=== PATIENT | male | born 1955 | race Caucasian/White ===

== ENCOUNTER 2025-02-20 06:08 | Inpatient (IN) ==
--- NOTE | 2025-02-14 11:58 | Anesthesiology Consultation ---
Date of Service February 14, 2025 Assessment & Plan (1) Encounter for pre-operative examination: Chart Review Chart Review: Pending: Refer to Additional Notes / Consult section (please obtain Cardio Office visit note from 10/28/24 visit (, [facility])) and Patient NOT seen in Pre Admission Testing -PAT phone eval completed by RN on 02/14/25 with pt's significant other and back roll lathe operator Tatyana. Instructions given and verbalized understanding on all medicat ions (including to hold Trulicity x 7 days and specific instructions on both short and long acting insulin) WITH EXCEPTION of antiplatelet/anticoagulant medications. Pt's back roll lathe operator was instructed specifically to contact surgeon's office to obtain instructions on: Brilinta, ASA, and Eliquis. She verbalized understanding and states that she will call surgeon's office for instructions on Brilinta, ASA, and Eliquis. -Note: pt was originally scheduled for this procedure 02/07/25 and was cancelled upon arrival due to antiplatelet/anticoagulant issue. See above, Re: pt/caregiver advised to contact surgeon's office to go over instructions on those medications. -From prior Anesthesia Consultation: Chlorhexidine allergy Per patient- pacemaker noted to left side. Scheduled for right TCAR. Discussed with Dr. Arroyo- pacer rep NOT needed DOS Per cardiology letter 12/28/2024 = Patient is low to intermediate cardiac risk for upcoming TCAR procedure. Infectious Disease screening: Per [facility] nursing assessment on 02/14/25, No known infectious disease contacts in past 10 days or current infectious disease symptoms. No recent travel outside the country. History Surgery Operation Date: 02/20/25 09:50 Proposed Procedures p Right Side Transcarotid Artery Revascularization - Humberto Martinez MD Height/Weight Height: 5 ft 11 in Weight: 113.398 kg Allergies Allergy/AdvReac Type Severity Reaction Status Date / Time chlorhexidine Allergy Mild red, itchy Verified 02/14/25 08:41 skin doxycycline Allergy Mild red, itchy Verified 02/14/25 08:41 skin Penicillins Allergy Mild Hives Verified 02/14/25 08:41 Medications Home Medications Medication Instructions Recorded Confirmed Last Taken apixaban 5 mg tablet 5 mg PO BID 01/31/25 02/14/25 Unknown aspirin 81 mg tablet 81 mg PO DAILY 01/31/25 02/14/25 Unknown digoxin 125 mcg (0.125 mg) tablet 125 mcg PO QAM 01/31/25 02/14/25 Unknown diltiazem HCl 360 mg 360 mg PO QAM 01/31/25 02/14/25 Unknown tablet,extended release 24 hr dulaglutide 3 mg/0.5 mL 3 mg subcut Q7D 01/31/25 02/14/25 Unknown subcutaneous pen injector empagliflozin 10 mg tablet 10 mg PO QAM 01/31/25 02/14/25 Unknown fenofibrate nanocrystallized 145 145 mg PO QAM 01/31/25 02/14/25 Unknown mg tablet furosemide 80 mg tablet 80 mg PO BID 01/31/25 02/14/25 Unknown insulin glargine 100 unit/mL (3 48 unit subcut BID 01/31/25 02/14/25 Unknown mL) subcutaneous pen (Lantus Solostar U-100 Insulin) insulin lispro 100 unit/mL 25 unit subcut UD 01/31/25 02/14/25 Unknown subcutaneous pen (Humalog KwikPen (U-100) Insulin) lisinopril 2.5 mg tablet 2.5 mg PO QAM 01/31/25 02/14/25 Unknown metformin 1,000 mg tablet 500 mg PO BID 01/31/25 02/14/25 Unknown metoprolol succinate 50 mg 75 mg PO BID 01/31/25 02/14/25 Unknown tablet,extended release 24 hr potassium chloride 20 mEq 20 meq PO QAM 01/31/25 02/14/25 Unknown tablet,extended release revefenacin 175 mcg/3 mL solution 175 mcg inhalation QPM 01/31/25 02/14/25 Unknown for nebulization ([place]) rosuvastatin 40 mg tablet 40 mg PO QPM 01/31/25 02/14/25 Unknown nystatin 100,000 unit/gram topical 1 applic topical BID #60 grams 02/07/25 02/14/25 Unknown powder ticagrelor 90 mg tablet (Brilinta) 90 mg PO BID 02/07/25 02/14/25 Unknown cholecalciferol (vitamin D3) 125 50,000 unit PO WK 02/14/25 02/14/25 Unknown mcg (5,000 unit) tablet (Vitamin D3) ensifentrine 3 mg/2.5 mL 2.5 ml inhalation AMPM 02/14/25 02/14/25 Unknown suspension for nebulization (Ohtuvayre) tamsulosin 0.4 mg capsule 0.4 mg PO DAILY 02/14/25 02/14/25 Unknown Past Medical History Medical History (Updated 02/14/25 @ 13:27 by Eileen Lua PA-C) Aortic valve stenosis Moderate per 12/2023 ECHO CAD (coronary artery disease) s/p PCI to RCA 2010 and PCI to LAD 2022 Carotid artery disease CKD (chronic kidney disease) Diabetes mellitus, type 2 IDDM History of atrial fibrillation permanent Afib; s/p pacer and is on Eliquis History of COPD History of COVID-19 (2023) 2023, no residual symptoms History of depression History of hypertension History of urinary retention Hx of atrial flutter s/p ablation 2010 On Eliquis Hx of congestive heart failure EF 50-55% per 12/2023 ECHO Hx of gastroesophageal reflux (GERD) "doesn't take his medicine regularly" Hx of hypercapnia 2015, "spent 8 days intubated at [facility], CO2 levels were at 99%" per Hx of hyperlipidemia Hx of migraines Hx of myocardial infarction (06/2009) 06/2009 Hx of sleep apnea CPAP- non compliant per SO Noncompliance pt's significant other states pt. is noncompliant with medications, home oxygen and nebulizer treatments On home oxygen therapy supposed to be on 4L O2 continuously, not always compliant per significant other Pacemaker Due to SSS , [employer] 06/28/2024, new generator placed, [facility] [place], [employer] PAD (peripheral artery disease) - s/p iliac artery stent 02/2023 (unsure what side); angioplasty to opposite iliac artery Peripheral angiogram LE- 11/10/24- showed severe PAD involving the left common femoral artery, bilateral SFA (recommended vascular surgery consult for possible DRYWALL MECHANIC endarterectomy followed by PCI of the bilateral SFA) Pulmonary HTN RVSP 49mmHg 12/2023 ECHO SSS (sick sinus syndrome) per chart review, SSS/2nd or 3rd degree heart block hx; s/p PPM ([employer]) Past Surgical History Surgical History History of cardiac radiofrequency ablation (RFA) (2011) 2009, [facility] [place]-"failed" ~2011, [facility] @ [place]failed" History of permanent cardiac pacemaker placement 02/2011, [place], [employer]; f/u dr. cantrell, [facility] 06/28/2024, new generator placed, [facility] [place], [employer] > last in-person check 12/2024 Hx of colonoscopy Hx of fusion of cervical spine late , [facility], weak muscle on one side-has some ROM limitations per Hx of heart artery stent (02/2023) 06/2009, [place], [place], x2 stents w/Dr. Hernandez 03/13/2023, routine cath, [facility], x1 stent; f/u Dr. Cantrell, [facility] Hx of unilateral orchiectomy "no cancer, just kept swelling up" S/P epidural steroid injection "couple in the past for his neck" S/P insertion of iliac artery stent 02/2023, [facility], stent in one leg; couple weeks later, ballooning of artery opposite leg Social History Smoking Status: Former smoker Do You Dip or Chew Tobacco: Yes (advised) Smoking End Date: 2015 Hx Alcohol Use: No Hx Substance Use: No substance use type: does not use Lab Results Anesthesia Preop Results Results Anesthesia Widget: WBC 10.64 K/ul (4.8-10.8) 02/07/25 Hgb 14.5 g/dl (14.0-18.0) 02/07/25 Hct 45.0 % (42.0-52.0) 02/07/25 Plt 208 K/uL (130-400) 02/07/25 Na 141 mmol/L (136-145) 02/07/25 K 4.3 mmol/L (3.5-5.1) 02/07/25 Cl 102 mmol/L (98-107) 02/07/25 CO2 31 mmol/L (21-32) 02/07/25 BUN 30 mg/dl (6-23) H 02/07/25 Creat 1.50 mg/dl (0.6-1.4) H 02/07/25 Glucose Level 191 mg/dl (70-99(Fasting)) H 02/07/25 POC Glucose 173 mg/dl (70-99) H 02/07/25 PT 11.3 Seconds (9.0-12.0) 02/07/25 PTT 28 Seconds (21-31) 02/07/25 INR 1.0 (0.9-1.1) 02/07/25 Blood Type O Positive 02/07/25 Antibody Screen NEGATIVE 02/07/25 Testing Electrocardiogram Date: 02/07/25 Afib with RVR, Rate: 101bpm iRBBB Cannot r/o anterior infarct, age undetermined. Chest X-Ray Date: 02/07/25 Findings: + NAD 1. No acute cardiopulmonary abnormalities identified. 2. Mild Blunting of the left costophrenic angle could be pleural thickening or small effusion. Echocardiogram Date: 01/14/24 EF: 50-55% LV Function: normal RWMA: + none LV wall thickness is mildly increased RV is mildly dilated. RVSP 49mmHg LA mildly-moderately dilated. RA mildly dilated. Moderate Aortic Stenosis (AV mean grad: 22.0mmHg; AV peak grad: 33.0mmHg; AMBREEN, Vmax 0.92cm/S/2; AMBREEN, VTI 1.25cm/S/2)) Mild-Mod TR. Cardiac Catheterization Date: 03/13/23 (multiple attempts to receive legible report unsuccessful; per Cardio note : single vessel obstructive CAD s/p PCI of pLAD with MARISSA) Other Testing Pacemaker Report 01/12/25: (6month read) [employer] Brittney XT DR-MRI; device implant date: 06/28/24 (lead implant date: 03/24/2011) Estimated longevity: 13years and 10months Mode: VVIR Pacing: RV 38.9% (AP: 0%) Treated AT/AF episodes: 0 VT(>4 beats): 6,973 CTA Neck 11/15/2024: 1. Eccentric mixed atheromatous plaque causing minimal to mild (up to 30%) luminal narrowing seen involving the left carotid bulb and extending into the origin of the left internal and external carotid arteries. 2. Eccentric mixed atheromatous plaque causing moderate to severe (up to 70%) luminal narrowing seen in the left internal carotid artery. 3. Circumferential mixed atheromatous plaques causing moderate to severe (up to 80%) luminal narrowing seen in the right carotid bulb and origin of right external carotid artery. 4. Eccentric mixed atheromatous plaque causing moderate (at the 60%) luminal narrowing seen in the proximal internal carotid artery. 5. No evidence of aneurysm. No evidence of dissection. Peripheral Angiogram Report 11/10/24: -Severe peripheral arterial disease involving the left common femoral artery, b/l SFA
[2025-02-20] MEDS ORDERED: ONDANSETRON INJ 2 MG/ML 2 ML VIAL IV PRN ×2 (07:05→11:51)
[2025-02-20] MEDS ORDERED: ATROPINE SULFATE 0.1 MG/ML 10ML SYR IV PRN (07:05)
[2025-02-20] MEDS ORDERED: FLUMAZENIL 0.1 MG/1 ML 10 ML VIAL IV PRN (07:05)
[2025-02-20] MEDS ORDERED: PROMETHAZINE HCL 6.25 MG in SODIUM CHLORIDE 0.9% 50 ML IV PRN (07:05)
[2025-02-20] MEDS ORDERED: NALOXONE HCL 0.4 MG/1 ML VIAL/CARP IV PRN (07:05)
[2025-02-20] MEDS: LR 15ML/HR IV SCH (07:09)
[2025-02-20] MEDS: LACTATED RINGER'S 1,000 ML IV SCH ×2 (07:10→14:04)
[2025-02-20] MEDS ORDERED: PROPOFOL IV EMULSION 10 MG/ML 20 ML VIAL IV ONE (07:29)
[2025-02-20] MEDS ORDERED: CISATRACURIUM BESYLATE IV SOLN 2 MG/ML 10 ML VIAL IV ONE (07:35)
[2025-02-20] MEDS ORDERED: ETOMIDATE 2 MG/ML 20 ML VIAL IV ONE (07:36)
[2025-02-20] MEDS ORDERED: HEPARIN SOD (PORCINE) 1000 UNIT/ML ONE (07:36)
--- NOTE | 2025-02-20 07:36 | History & Physical Report ---
Date of Service February 20, 2025 Assessment & Plan (1) Carotid stenosis, bilateral: Plan: Patient is admitted for a right tcar. I have discussed the risks options and benefits of the procedure with the patient. The patient understands the risks options and benefits and agrees to the procedure. History of Present Illness Chief Complaint: Bilateral carotid artery stenosis Primary Care Provider: DESIREE Helton Mr. Donahue is an elderly male who presents to vascular surgery clinic today as a new patient in consultation for carotid disease and peripheral arterial disease. Patient states he has been following with his facilities assistant who recently performed an angiogram of his lower extremities due to recurrent cellulitis and small draining ulcers on his shins related to chronic edema. The angiogram indicated a an occlusion of his left common femoral artery, and patient was referred here for open surgical intervention. Additionally some recent carotid imaging had indicated severe stenoses bilaterally. Patient denies any history of stroke in the past. He denies any recent symptoms of cerebrovascular insufficiency including amaurosis, unilateral extremity weakness numbness or tingling, difficulty speaking or swallowing, facial droop, sudden onset confusion. He does complain of some calf claudication symptoms worse in the left calf than the right, after ambulating about 30 yards. He does use a cane for ambulation and gets short of breath with ambulating as well from COPD, and he is supposed to wear oxygen all day long, but does not wear it regularly. Patient denies any rest pain, nonhealing wounds or ulcers of the toes or feet, headache, fever, chest pain, shortness of breath at rest, abdominal pain, nausea, vomiting, other complaints. Patient does have poor neck strength and neck mobility due to a previous accident, which causes him to tilt his head forward into the right. Allergies Allergy/AdvReac Type Severity Reaction Status Date / Time chlorhexidine Allergy Mild red, itchy Verified 02/20/25 06:49 skin doxycycline Allergy Mild red, itchy Verified 02/20/25 06:49 skin Penicillins Allergy Mild Hives Verified 02/20/25 06:49 Home Medications Medication Instructions Recorded Confirmed Type apixaban 5 mg tablet 5 mg PO BID 01/31/25 02/20/25 History aspirin 81 mg tablet 81 mg PO DAILY 01/31/25 02/20/25 History digoxin 125 mcg (0.125 mg) tablet 125 mcg PO QAM 01/31/25 02/20/25 History diltiazem HCl 360 mg 360 mg PO QAM 01/31/25 02/20/25 History tablet,extended release 24 hr dulaglutide 3 mg/0.5 mL 3 mg subcut Q7D 01/31/25 02/20/25 History subcutaneous pen injector empagliflozin 10 mg tablet 10 mg PO QAM 01/31/25 02/20/25 History fenofibrate nanocrystallized 145 145 mg PO QAM 01/31/25 02/20/25 History mg tablet furosemide 80 mg tablet 80 mg PO BID 01/31/25 02/20/25 History insulin glargine 100 unit/mL (3 48 unit subcut BID 01/31/25 02/20/25 History mL) subcutaneous pen (Lantus Solostar U-100 Insulin) insulin lispro 100 unit/mL 25 unit subcut UD 01/31/25 02/20/25 History subcutaneous pen (Humalog KwikPen (U-100) Insulin) lisinopril 2.5 mg tablet 2.5 mg PO QAM 01/31/25 02/20/25 History metformin 1,000 mg tablet 500 mg PO BID 01/31/25 02/20/25 History metoprolol succinate 50 mg 75 mg PO BID 01/31/25 02/20/25 History tablet,extended release 24 hr potassium chloride 20 mEq 20 meq PO QAM 01/31/25 02/20/25 History tablet,extended release revefenacin 175 mcg/3 mL solution 175 mcg inhalation QPM 01/31/25 02/20/25 History for nebulization ([place]i) rosuvastatin 40 mg tablet 40 mg PO QPM 01/31/25 02/20/25 History nystatin 100,000 unit/gram topical 1 applic topical BID #60 grams 02/07/25 02/20/25 Rx powder ticagrelor 90 mg tablet (Brilinta) 90 mg PO BID 02/07/25 02/20/25 History cholecalciferol (vitamin D3) 125 50,000 unit PO WK 02/14/25 02/20/25 History mcg (5,000 unit) tablet (Vitamin D3) ensifentrine 3 mg/2.5 mL 2.5 ml inhalation AMPM 02/14/25 02/20/25 History suspension for nebulization (Ohtuvayre) tamsulosin 0.4 mg capsule 0.4 mg PO DAILY 02/14/25 02/20/25 History Past Med/Surg History Problem List (Updated 02/20/25 @ 07:35 by Humberto Martinez MD) Carotid stenosis, bilateral Encounter for pre-operative examination Medical History CKD (chronic kidney disease) Noncompliance pt's significant other states pt. is noncompliant with medications, home oxygen and nebulizer treatments Aortic valve stenosis Moderate per 12/2023 ECHO Carotid artery disease Pulmonary HTN RVSP 49mmHg 12/2023 ECHO SSS (sick sinus syndrome) per chart review, SSS/2nd or 3rd degree heart block hx; s/p PPM ([employer]) PAD (peripheral artery disease) - s/p iliac artery stent 02/2023 (unsure what side); angioplasty to opposite iliac artery Peripheral angiogram LE- 11/10/24- showed severe PAD involving the left common femoral artery, bilateral SFA (recommended vascular surgery consult for possible CARDIAC CATH TECHNICIAN endarterectomy followed by PCI of the bilateral SFA) CAD (coronary artery disease) s/p PCI to RCA 2010 and PCI to LAD 2022 Hx of hypercapnia 2015, "spent 8 days intubated at [facility], CO2 levels were at 99%" per History of urinary retention History of hypertension Hx of hyperlipidemia Hx of gastroesophageal reflux (GERD) "doesn't take his medicine regularly" Diabetes mellitus, type 2 IDDM On home oxygen therapy supposed to be on 4L O2 continuously, not always compliant per significant other History of depression Hx of migraines History of atrial fibrillation permanent Afib; s/p pacer and is on Eliquis Hx of congestive heart failure EF 50-55% per 12/2023 ECHO Pacemaker Due to SSS , [employer] 06/28/2024, new generator placed, [facility] Hx of atrial flutter s/p ablation 2010 On Eliquis Hx of myocardial infarction (06/2009) 06/2009 History of COVID-19 (2023) 2023, no residual symptoms Hx of sleep apnea CPAP- non compliant per SO History of COPD Surgical History Hx of unilateral orchiectomy "no cancer, just kept swelling up" Hx of colonoscopy S/P epidural steroid injection "couple in the past for his neck" Hx of fusion of cervical spine late , [facility], weak muscle on one side-has some ROM limitations per S/P insertion of iliac artery stent 02/2023, [place], stent in one leg; couple weeks later, ballooning of artery opposite leg History of permanent cardiac pac[facility] 02[facility]2011[facility] [place]; f/u dr. cantrell, [facility] 06/28/2024, new generator placed, [facility], [employer] > last in-person check 12/2024 History of cardiac radiofrequency ablation (RFA) (2011) 2009, [facility] @ [place]-"failed" ~2011, [facility] @ [place]-"failed" Hx of heart artery stent (02/2023) 06/2009, [place], [place], x2 stents w/Dr. Hernandez 03/13/2023, routine cath, [facility], x1 stent; f/u Dr. Cantrell, [facility] Social History Smoking Status: Former smoker Tobacco Type: Smokeless Tobacco (Dip or Chew) Smoking End Date: 2015; Second Hand Exposure: No; Do You Dip or Chew Tobacco: Yes (advised); Tobacco Cessation Education Requested by Patient: No Hx Alcohol Use: No Hx Substance Use: No Preferred Language: Guyanese Communication Ability: Effective School Vocational Educator Required: No Beliefs That Will Affect Care: None Current Living Situation: Significant Other Other Information That Helps Us Care for You: No Feels Safe at Home: Yes Safety Concerns: Feels Safe At This Time Assistive Devices: Nebulizer and Oxygen - Continuous Review of Systems All systems reviewed & are unremarkable except as noted in HPI & below Physical Exam Physical Exam: Constitutional: In general patient is an obese, chronically ill-appearing elderly male in no distress. He ambulates with a cane. He is alert and oriented without focal neurological deficits. He does have a mild tremor. His head is tilted forward and to the right, but is movable manually, although his neck muscles are not strong enough to move it himself. His carotids do not demonstrate a bruit. His heart is irregular. His lungs are decreased thro ughout with sparse expiratory wheezing and coarse breath sounds. His abdomen is protuberant due to body habitus and is soft and nontender with normoactive bowel sounds. Radial and brachial pulses are +3. Femoral pulses are +3 on the right, +2 on the left. His lower extremities the pulses are nonpalpable, but are easily dopplerable. He does have scarring of his left anterior lower leg from previous trauma. He has a purplish discoloration of the lower legs bilaterally consistent with chronic venous insufficiency. There are no open wounds at this point. He does have +3 edema of the lower legs. His neuro exam is grossly intact. Results & Data Vital Signs (Past 12 Hours) Vital Signs Temp Pulse Resp BP BP Pulse Ox O2 Del Method 02/20/25 06:35 36.4 C L 84 20 124/70 123/71 92 Room Air
[2025-02-20] MEDS ORDERED: NEOSTIGMINE METHYLSULFATE 1 MG/ML 10ML VIAL ONE (07:45)
[2025-02-20] MEDS: ASPIRIN 81 MG CHEW PO STA (08:00)
[2025-02-20] MEDS: TICAGRELOR 90 MG TAB PO STA (08:00)
[2025-02-20] MEDS: CLINDAMYCIN/D5W 900 MG/50 ML BAG IV SCH (08:00)
[2025-02-20] MEDS ORDERED: GLYCOPYRROLATE 0.2 MG/ML VIAL ONE (09:33)
[2025-02-20] MEDS ORDERED: SUCCINYLCHOLINE 100MG/5ML SYR IV ONE (09:33)
[2025-02-20] MEDS ORDERED: VASOPRESSIN 20 UNIT/ML VIAL ONE (09:33)
[2025-02-20] MEDS ORDERED: PROTAMINE SULFATE 10 MG/ML 5 ML VIAL IV ONE (09:48)
[2025-02-20] MEDS: THROMBIN FOR SOLN 20000 UNIT KIT ONE ×2 (09:48→09:49)
[2025-02-20] MEDS: ceFAZolin 330 MG/ML 1 GM VIAL ONE (09:48)
[2025-02-20] MEDS: HEPARIN (PORCINE) 1000 UNIT/ML 10 ML (CATH LAB USE ONLY) ONE (09:48)
[2025-02-20] MEDS: GELATIN SPONGE SZ 100 ONE (09:49)
[2025-02-20] MEDS: VISIPAQUE IV ONE (09:55)
[2025-02-20] MEDS: BUPIVACAINE/EPINEPHRINE 0.5% MPF 1:200,000 30 ML VIAL ONE (09:56)
--- NOTE | 2025-02-20 10:19 | Procedure Note ---
Angiogram Post Procedure Fluoroscopy Time (minutes): 2.4 Radiation (mGy): 45 Contrast: 12 Post Operative Report Pre & Post Diagnosis Operation Date: 02/20/25 08:00 Pre-Op Diagnosis: Right Internal Carotid Artery Stenosis Post-Op Diagnosis: Right Internal Carotid Artery Stenosis I identified the patient and participated in the time-out.: Yes Procedure Operation Date: 02/20/25 08:00 Actual Procedures p Right Side Transcarotid Artery Revascularization(Right), Ultrasound localization of right common femoral vein - Humberto Martinez MD Surgeon Humberto Martinez MD Marine Electronics Technician none Estimated Blood Loss 20 Findings Consistent with Post-Op Diagnosis Specimens none Anesthesia Type General Complications none Disposition Accompanied Patient To Recovery: No Disposition: Recovery Room Indications This is a 69-year-old gentleman was found to have severe bilateral carotid artery stenosis. Worse on the right than the left. Intervention is recommended. We went over the risks options and benefits of TCAR versus carotid endarterectomy. He elected to go ahead with a TCAR. I have discussed the risks options and benefits of the procedure with the patient. The patient understands the risks options and benefits and agrees to the procedure. Description of Procedure The patient was taken to the operating room and placed in supine position. After general anesthesia was accomplished the groins and right side of the neck and chest were prepped and draped in a sterile manner. Timeout was performed and the patient was identified. A transverse incision was made just above the clavicle between the heads of the sternocleidomastoid. This is carried down to where the common carotid artery was identified. It was isolated. It was slung with umbilical tape. Next the U stitch was placed in the common carotid artery with a 5-0 Prolene suture. Patient was given 35517 heparin at that time. Ultrasound was then used to localize the left common femoral vein. The vein was patent and compressed easily. Under ultrasound guidance the right common femoral vein was punctured and the venous sheath was inserted. This was aspirated and flushed with heparinized saline. ACT at that time was 291. Using micropuncture technique the common carotid artery was punctured. The micro sheath was inserted to 3 cm. Injection was then done showing the bifurcation. There was a significant lesion seen at the origin of the internal carotid artery on the right side. We then inserted the J-wire left and short of the lesion. The micro sheath was removed and the TCAR sheath was inserted. Once it was in place and held against the artery it was sutured to the chest wall and the incision edge. We then flushed the tubing appropriately. The venous return to was clamped onto the TCAR sheath. It was flushed through and then attached to the venous inflow sheath in the right groin. Sheath was checked for flow. The saline cleared nicely. The common carotid artery was then clamped. Flow reversal was instituted.The flow reversal was again checked for flow and found to have good flow after clamping. We inserted a 6 x 35 balloon backloaded on the wire. The wire was passed through the lesion into the petrous portion of the internal carotid. The 6 balloon was then advanced to the lesion. Lesion was then predilated with a 6mm balloon. Balloon was removed. We then inserted the 10/8 x 40 stent. This was deployed across the lesion without difficulty. The catheter was removed. The carotid was allowed to go 2 minutes with flow reversal. Completion angiogram was done at that time which showed a widely patent carotid stent. At that point the common carotid artery was unclamped. The venous return tubing was clamped and removed from the TCAR sheath. The blood was allowed to flow back into the venous system. The TCAR sheath was then removed and the 5-0 Prolene suture securely tied. The patient was given 25 mg of protamine. Hemostasis was noted of the puncture site. An ACT was then drawn. The ACT was 124. The sheath was pulled from the groin and pressure was applied. Wound was irrigated with saline solution. Adequate hemostasis was obtained of the wound. Once this was noted the wound was closed in usual fashion using a 3-0 Vicryl suture for the subcutaneous layer and a 4-0 subcuticular Vicryl suture for the skin edges. Dermabond was used for dressing. The patient left the operation room in satisfactory condition and tolerated the procedure well. All needle and sponge counts were correct at the end of the procedure. I attest to the content of the Intraoperative Record and any orders documented therein. Any exceptions are noted below.
[2025-02-20] MEDS: ALBUTEROL 0.083% NEBU SOLN 3 ML VIAL NEB STA (10:42)
[2025-02-20] MEDS ORDERED: PHARMACY GLYCEMIC MGMT CONSULT PRN (11:51)
[2025-02-20] MEDS ORDERED: STAT IV Infusion **Titration per Protocol STA (11:51)
[2025-02-20] MEDS: PHENYLEPHRINE/NSS 25 MG/250 ML BAG IV PRN (11:58)
--- NOTE | 2025-02-20 12:25 | Anesthesiology Progress Note ---
Date of Service February 20, 2025 Anesthesia Post Procedure Vital Signs Vital Signs: Temp Pulse Pulse Resp BP BP BP 02/20/25 11:35 36.8 C 65 20 106/45 L 105/58 L 02/20/25 11:15 36.4 C L 66 22 102/54 L 104/42 L 02/20/25 11:05 63 20 110/42 L 111/45 L 02/20/25 10:55 63 20 108/50 L 109/42 L 02/20/25 10:45 36.0 C L 71 21 109/42 L 103/50 L 02/20/25 10:35 77 20 125/48 L 120/57 L 02/20/25 10:25 36.0 C L 81 22 120/64 02/20/25 07:33 02/20/25 06:35 36.4 C L 84 20 124/70 123/71 Pulse Ox O2 Del Method O2 Flow Rate 02/20/25 11:35 98 Oxymask 4 02/20/25 11:15 96 Oxymask 4 02/20/25 11:05 97 Oxymask 6 02/20/25 10:55 97 Oxymask 10 02/20/25 10:45 98 Nebulizer 15 02/20/25 10:35 94 Oxymask 15 02/20/25 10:25 94 Oxymask 15 02/20/25 07:33 97 Nasal Cannula 2 02/20/25 06:35 92 Room Air Transfer of Care Handoff Completed per policy Notes Mental Status: alert / awake / arousable Patient Amnestic to Procedure: Yes Nausea / Vomiting: adequately controlled Pain: adequately controlled Airway Patency, RR, SpO2: see Notes below BP & HR: stable & adequate Hydration State: stable & adequate Anesthetic Complications: no major complications apparent Notes: Pt has significant pulmonary co-morbidities
[2025-02-20] MEDS: LANTUS PER UNIT CHARGE SC SCH (14:04)
[2025-02-20] MEDS: INSULIN ASPART PER UNIT CHARGE SC SCH (14:04)
--- NOTE | 2025-02-20 15:08 | Pharmacy Report ---
Pharmacy Glycemic Short Note 2 - Date of Service February 20, 2025 - Glycemic Short BSG Results (Last 24 hours): 02/20/25 02/20/25 02/20/25 06:29 10:32 11:35 POC Glucose 103 H 147 H 165 H OUTPATIENT ANTIDIABETIC REGIMEN: * Lantus 40 units BID, Humalog 10 units BID (lunch/dinner), empagliflozin 10 mg qAM, dulaglutide 3 mg q7D, metformin 500 mg BD * A1c pending. ASSESSMENT: * Admitted to ICU following right TCAR. Patient has a history of type II diabetes * Will initiate basal/bolus insulin similar to weight stress 2. Regimen outpatient appears to be basal heavy- will aim to split 50/50 with novolog PLAN FOR INPATIENT GLYCEMIC CONTROL: * Hold outpatient oral diabetes medications * Basal insulin * Lantus 30 units SQ x1, scale for PM 10-20 units * Bolus insulin * NovoLog per scale ACHS or Q6hrs while NPO * Goal Range: Low 110 mg/dL - High 160 mg/dL * Correction Factor: 20 mg/dL/unit * Nutritional / Prandial insulin per carb ratio of 1 unit per 7 grams CHO co nsumed
--- NOTE | 2025-02-20 15:35 | Pharmacy Report ---
Pharmacy Glycemic Short Note 2 - Date of Service February 20, 2025 - Glycemic Short BSG Results (Last 24 hours): 02/20/25 02/20/25 02/20/25 06:29 10:32 11:35 POC Glucose 103 H 147 H 165 H OUTPATIENT ANTIDIABETIC REGIMEN: * ASSESSMENT: * PLAN FOR INPATIENT GLYCEMIC CONTROL: * Hold outpatient oral diabetes medications * Basal insulin * Lantus [] units SQ BID * Bolus insulin * NovoLog per scale ACHS or Q6hrs while NPO * Goal Range: Low [] mg/dL - High [] mg/dL * Correction Factor: [] mg/dL/unit * Nutritional / Prandial insulin per carb ratio of 1 unit per [] grams CHO consumed
--- NOTE | 2025-02-20 16:41 | Critical Care Consultation ---
Date of Consultation February 20, 2025 Assessment & Plan (1) Carotid stenosis, bilateral: (2) CKD (chronic kidney disease): (3) Carotid artery disease: (4) Pulmonary HTN: (5) CAD (coronary artery disease): (6) On home oxygen therapy: (7) History of COPD: (8) Hx of congestive heart failure: (9) Postoperative hypotension: Plan Nito Donahue is a 69-year-old male with past medical history of COPD on home oxygen, CAD, HFrEF last EF 55-60%, CKD, PAD, SSS s/p PPM, pulmonary hypertension, carotid stenosis, KEITH noncompliant with CPAP, diabetes Mellitus Type II, and atrial fibrillation on Eliquis; who presented to [facility] on 02/20/2025 for a planned right carotid TCAR. Postoperative hypotension related to carotid sinus hypersensitivity in setting of TCAR. -SBP goal > 100; phenyephrine gtt ordered to maintain SBP goal. Currently at 0.1. -Monitor Cartoid stenosis s/p right TCAR -Neurovascular checks per protocol -SBP > 100. Currently on 0.1 phenylephrine to maintain BP goal. -Cont aspirin and tricagrelor COPD; chronic hypoxemia on oxygen at home -On oxygen at home though no always compliant -Maintain SpO2 > 90% -Currently on 4L nasal cannula -Continue duonebs q6R CAD; PAD; atrial fibrillation; hyperlipidemia; pulmonary hypertension -Continue apixiban to start 02/21/2025 in am. -Continue digoxin and diltiazem. -Continue furosemide. -Cont fenofibrate and rosuvastatin Diabetes Mellitus Type II -Insulin hyperglycemia protocol ordered. -Hgba1c pending Chronic kidney disease stage 3a -Avoid nephrotxic agents -Monitor renal function in am. Thank you allowing us to participate in this patient's care. Please feel free to reach out with questions or concerns. I have personally spent 45 minutes of critical care time in the direct management of this patient. This is a life/limb threatening event. This includes time spent evaluating patient, direct bedside care, chart review, placing orders, interpretation of diagnostic studies, discussion with consultants, patient, and family members, as well as other required patient management activities. This time is exclusive of all separately billable procedures, and teaching time and separate from and in addition to any other critical care service time. History of Present Illness Reason for Consultation: Post op management of right TCAR Attending Physician: Humberto Martinez MD History of Present Illness Nito Donahue is a 69-year-old male with past medical history of COPD on home oxygen, CAD, HFrEF last EF 55-60%, CKD, PAD, SSS s/p PPM, pulmonary hyp ertension, carotid stenosis, KEITH noncompliant with CPAP, diabetes Mellitus Type II, and atrial fibrillation on Eliquis; who presented to [facility] on 02/20/2025 for a planned right carotid TCAR. Per report procedure went well and without complication. Patient started on phenylephrine gtt to maintain SBP > 100 and brought to the ICU for continued evaluation and management. Allergies Allergy/AdvReac Type Severity Reaction Status Date / Time chlorhexidine Allergy Mild red, itchy Verified 02/20/25 06:49 skin doxycycline Allergy Mild red, itchy Verified 02/20/25 06:49 skin Penicillins Allergy Mild Hives Verified 02/20/25 06:49 Home Medications Medication Instructions Recorded Confirmed Type apixaban 5 mg tablet 5 mg PO BID 01/31/25 02/20/25 History aspirin 81 mg tablet 81 mg PO DAILY 01/31/25 02/20/25 History digoxin 125 mcg (0.125 mg) tablet 125 mcg PO QAM 01/31/25 02/20/25 History diltiazem HCl 360 mg 360 mg PO QAM 01/31/25 02/20/25 History tablet,extended release 24 hr dulaglutide 3 mg/0.5 mL 3 mg subcut Q7D 01/31/25 02/20/25 History subcutaneous pen injector empagliflozin 10 mg tablet 10 mg PO QAM 01/31/25 02/20/25 History fenofibrate nanocrystallized 145 145 mg PO QAM 01/31/25 02/20/25 History mg tablet furosemide 80 mg tablet 80 mg PO BID 01/31/25 02/20/25 History insulin glargine 100 unit/mL (3 48 unit subcut BID 01/31/25 02/20/25 History mL) subcutaneous pen (Lantus Solostar U-100 Insulin) insulin lispro 100 unit/mL 25 unit subcut UD 01/31/25 02/20/25 History subcutaneous pen (Humalog KwikPen (U-100) Insulin) lisinopril 2.5 mg tablet 2.5 mg PO QAM 01/31/25 02/20/25 History metformin 1,000 mg tablet 500 mg PO BID 01/31/25 02/20/25 History metoprolol succinate 50 mg 75 mg PO BID 01/31/25 02/20/25 History tablet,extended release 24 hr potassium chloride 20 mEq 20 meq PO QAM 01/31/25 02/20/25 History tablet,extended release revefenacin 175 mcg/3 mL solution 175 mcg inhalation QPM 01/31/25 02/20/25 History for nebulization (Yupelri) rosuvastatin 40 mg tablet 40 mg PO QPM 01/31/25 02/20/25 History nystatin 100,000 unit/gram topical 1 applic topical BID #60 grams 02/07/25 02/20/25 Rx powder ticagrelor 90 mg tablet (Brilinta) 90 mg PO BID 02/07/25 02/20/25 History cholecalciferol (vitamin D3) 125 50,000 unit PO WK 02/14/25 02/20/25 History mcg (5,000 unit) tablet (Vitamin D3) ensifentrine 3 mg/2.5 mL 2.5 ml inhalation AMPM 02/14/25 02/20/25 History suspension for nebulization (Ohtuvayre) tamsulosin 0.4 mg capsule 0.4 mg PO DAILY 02/14/25 02/20/25 History Patient History Medical History CKD (chronic kidney disease) Noncompliance pt's significant other states pt. is noncompliant with medications, home oxygen and nebulizer treatments Aortic valve stenosis Moderate per 12/2023 ECHO Carotid artery disease Pulmonary HTN RVSP 49mmHg 12/2023 ECHO SSS (sick sinus syndrome) per chart review, SSS/2nd or 3rd degree heart block hx; s/p PPM ([employer]) PAD (peripheral artery disease) - s/p iliac artery stent 02/2023 (unsure what side); angioplasty to opposite i liac artery Peripheral angiogram LE- 11/10/24- showed severe PAD involving the left common femoral artery, bilateral SFA (recommended vascular surgery consult for possible TOBACCO SIZER endarterectomy followed by PCI of the bilateral SFA) CAD (coronary artery disease) s/p PCI to RCA 2010 and PCI to LAD 2022 Hx of hypercapnia 2015, "spent 8 days intubated at [facility], CO2 levels were at 99%" per History of urinary retention History of hypertension Hx of hyperlipidemia Hx of gastroesophageal reflux (GERD) "doesn't take his medicine regularly" Diabetes mellitus, type 2 IDDM On home oxygen therapy supposed to be on 4L O2 continuously, not always compliant per significant other History of depression Hx of migraines History of atrial fibrillation permanent Afib; s/p pacer and is on Eliquis Hx of congestive heart failure EF 50-55% per 12/2023 ECHO Pacemaker Due to SSS , [employer]tr[employer] 06/28/2024, new generator placed, [facility], [facility] Hx of atrial flutter s/p ablation 2010 On Eliquis Hx of myocardial infarction (06/2009) 06/2009 History of COVID-19 (2023) 2023, no residual symptoms Hx of sleep apnea CPAP- non compliant per SO History of COPD Surgical History Hx of unilateral orchiectomy "no cancer, just kept swelling up" Hx of colonoscopy S/P epidural steroid injection "couple in the past for his neck" Hx of fusion of cervical spine late , [facility], weak muscle on one side-has some ROM limitations per S/P insertion of iliac artery stent 02/2023, [place], stent in one leg; couple weeks later, ballooning of artery opposite leg History of permanent cardiac pacemaker placement 02/2011, [place], [employer]; f/u dr. cantrell, [place] 06/28/2024, new generator placed, [facility], [employer] > last in-person check 12/2024 History of cardiac radiofrequency ablation (RFA) (2011) 2009, [facility] [place] [facility]-"failed" ~2011, [facility] [place] [facility]-"failed" Hx of heart artery stent (02/2023) 06/2009, [facility] [place], x2 stents w/Dr. Hernandez 03/13/2023, routine cath, [facility], x1 stent; f/u Dr. Cantrell, [facility] Social History Smoking Status: Former smoker Tobacco Type: Smokeless Tobacco (Dip or Chew) Smoking End Date: 2015; Second Hand Exposure: No; Do You Dip or Chew Tobacco: Yes (advised); Tobacco Cessation Education Requested by Patient: No Hx Alcohol Use: No Hx Substance Use: No Preferred Language: Micronesian Communication Ability: Effective Baller Tender Required: No Beliefs That Will Affect Care: None Current Living Situation: Significant Other Other Information That Helps Us Care for You: No Feels Safe at Home: Yes Safety Concerns: Feels Safe At This Time Assistive Devices: Nebulizer and Oxygen - Continuous Review of Systems Review of Systems: All systems reviewed & are unremarkable except as noted in HPI & below Physical Exam Physical Exam: VITALS: Reviewed. WEIGHT/BMI reviewed. GEN: well-developed, NAD. PSYCH: Good Judgment. AOx3. Normal memory, mood, and affect. HEENT -Head: NC/AT; -Eyes: PERRL, EOMI. No discharge or redn ess; -Ears: External ears are normal -Nose: Normal nares. NECK: Supple, with no masses. right incision site covered with dressing no hematoma or bleeding noted. CV: , no m/r/g. LUNGS: CTAB, no w/r/c. chest rise symmetrical. Breathing nonlabored. ABD: Soft, NT/ND, NBS, no masses or organomegaly. : Harmon draining yellow clear urine. SKIN: Warm, well perfused. No skin rashes or abnormal lesions. MSK: No deformities, Normal gait. EXT: No clubbing, cyanosis, or edema. right groin access site with dressing in place no hematoma or bleeding. NEURO: Speech clear, face symmetric, follows commands. Normal muscle strength and tone. No focal deficits. Results & Data Results & Data Vital Signs (Past 12 Hours) Vital Signs Temp Pulse Pulse Pulse Resp BP BP 02/20/25 15:06 69 17 02/20/25 14:54 69 19 136/58 L 02/20/25 14:51 66 18 02/20/25 14:24 72 17 02/20/25 13:51 68 10 L 127/62 02/20/25 13:42 67 14 02/20/25 13:18 74 15 02/20/25 12:54 68 20 133/77 02/20/25 12:33 64 19 02/20/25 12:00 65 12 115/45 L 02/20/25 11:57 64 15 106/46 L 02/20/25 11:45 72 20 02/20/25 11:35 36.8 C 65 20 02/20/25 11:15 36.4 C L 66 22 02/20/25 11:05 63 20 02/20/25 10:55 63 20 02/20/25 10:45 36.0 C L 71 21 02/20/25 10:35 77 20 02/20/25 10:25 36.0 C L 81 22 02/20/25 07:33 02/20/25 06:35 36.4 C L 84 20 124/70 BP BP Pulse Ox O2 Del Method O2 Flow Rate 02/20/25 15:06 92 02/20/25 14:54 93 02/20/25 14:51 93 02/20/25 14:24 92 02/20/25 13:51 97 02/20/25 13:42 97 02/20/25 13:18 96 02/20/25 12:54 97 02/20/25 12:33 97 02/20/25 12:00 95 02/20/25 11:57 95 02/20/25 11:45 97 02/20/25 11:35 106/45 L 105/58 L 98 Oxymask 4 02/20/25 11:15 102/54 L 104/42 L 96 Oxymask 4 02/20/25 11:05 110/42 L 111/45 L 97 Oxymask 6 02/20/25 10:55 108/50 L 109/42 L 97 Oxymask 10 02/20/25 10:45 109/42 L 103/50 L 98 Nebulizer 15 02/20/25 10:35 125/48 L 120/57 L 94 Oxymask 15 02/20/25 10:25 120/64 94 Oxymask 15 02/20/25 07:33 97 Nasal Cannula 2 02/20/25 06:35 123/71 92 Room Air Critical Care Results & Data Vital Signs (Past 12 Hours) Vital Signs Temp Pulse Pulse Pulse Resp BP BP 02/20/25 15:06 69 17 02/20/25 14:54 69 19 136/58 L 02/20/25 14:51 66 18 02/20/25 14:24 72 17 02/20/25 13:51 68 10 L 127/62 02/20/25 13:42 67 14 02/20/25 13:18 74 15 02/20/25 12:54 68 20 133/77 02/20/25 12:33 64 19 02/20/25 12:00 65 12 115/45 L 02/20/25 11:57 64 15 106/46 L 02/20/25 11:45 72 20 02/20/25 11:35 36.8 C 65 20 02/20/25 11:15 36.4 C L 66 22 02/20/25 11:05 63 20 02/20/25 10:55 63 20 02/20/25 10:45 36.0 C L 71 21 02/20/25 10:35 77 20 02/20/25 10:25 36.0 C L 81 22 02/20/25 07:33 02/20/25 06:35 36.4 C L 84 20 124/70 BP BP Pulse Ox O2 Del Method O2 Flow Rate 02/20/25 15:06 92 02/20/25 14:54 93 02/20/25 14:51 93 02/20/25 14:24 92 02/20/25 13:51 97 02/20/25 13:42 97 02/20/25 13:18 96 02/20/25 12:54 97 02/20/25 12:33 97 02/20/25 12:00 95 02/20/25 11:57 95 02/20/25 11:45 97 02/20/25 11:35 106/45 L 105/58 L 98 Oxymask 4 02/20/25 11:15 102/54 L 104/42 L 96 Oxymask 4 02/20/25 11:05 110/42 L 111/45 L 97 Oxymask 6 02/20/25 10:55 108/50 L 109/42 L 97 Oxymask 10 02/20/25 10:45 109/42 L 103/50 L 98 Nebulizer 15 02/20/25 10:35 125/48 L 120/57 L 94 Oxymask 15 02/20/25 10:25 120/64 94 Oxymask 15 02/20/25 07:33 97 Nasal Cannula 2 02/20/25 06:35 123/71 92 Room Air Lab & Micro Results (Past 24 Hours) No Data to Display No Data to Display No Data to Display I & O Totals 24 Hours 02/19/25 02/20/25 02/21/25 06:59 06:59 06:59 Intake Total 750 / 750 Output Total Balance 730 / 730 Cumulative 02/10/25 13:57 thru 02/20/25 15:23 Intake Total 750 Output Total 20 Balance 730 RT Ventilator Mngmt (Last Documented) Ventilator Ordered Settings Respiratory Rate 17 02/20/25 15:06 Ventilator - PT Measurements Respiratory Rate 17 Coding Level of Care Code 79427 CRITICAL CARE 1ST 30-74M Diagnoses Carotid stenosis, bilateral I65.23 CKD (chronic kidney disease) N18.9 Carotid artery disease I77.9 Pulmonary HTN I27.20 CAD (coronary artery disease) I25.10 On home oxygen therapy Z99.81 History of COPD Z87.09 Hx of congestive heart failure Z86.79 Postoperative hypotension I95.81
[2025-02-20] MEDS: CLINDAMYCIN/D5W 600 MG/50 ML BAG IV SCH (17:05)
[2025-02-20] MEDS: ALBUT/IPRATROP 3MG/0.5MG NEB 3 ML VIAL NEB SCH (19:27)
[2025-02-20] MEDS: ALBUTEROL 0.083% NEBU SOLN 3 ML VIAL ONE (19:55)
[2025-02-20] MEDS: ROSUVASTATIN CALCIUM 20 MG TAB PO SCH (20:45)
[2025-02-20] MEDS: METOPROLOL SUCC 25MG EXT REL TAB PO SCH (20:45)
[2025-02-20] MEDS: LANTUS PER UNIT CHARGE SC ONE (20:45)
[2025-02-20] MEDS: FUROSEMIDE 80 MG TAB PO SCH (20:45)
[2025-02-20] MEDS: TICAGRELOR 90 MG TAB PO SCH (20:45)
[2025-02-20] MEDS: NYSTATIN POWDER 15GM BTL EXT SCH (20:46)
[2025-02-20] MEDS ORDERED: LANTUS PER UNIT CHARGE SC SCH (21:00)
[2025-02-20] MEDS ORDERED: NON-FORMULARY MEDICATION (Insulin Glargine [Lantus Solostar U-100 Insulin] 100 unit/mL (3 SQ SCH (21:00)
[2025-02-21] MEDS: FENOFIBRATE NANOCRYSTALLIZED 145 MG TABLET PO SCH (07:59)
[2025-02-21] MEDS: TAMSULOSIN HCL 0.4 MG CAP PO SCH (07:59)
[2025-02-21] MEDS: DIGOXIN 0.125 MG TAB PO SCH (08:00)
[2025-02-21] MEDS: ASPIRIN 81 MG ECTAB PO SCH (08:00)
[2025-02-21] MEDS: APIXABAN 5 MG TABLET PO SCH (08:00)
[2025-02-21] MEDS: POTASSIUM CHLORIDE CRTAB 20 MEQ TABCR PO SCH (08:03)
--- NOTE | 2025-02-21 08:20 | Surgery Progress Note ---
Date of Service February 21, 2025 Assessment & Plan (1) S/P vascular surgery: Plan: Patient is doing well status post right TCAR. The plan is to discharge today. Admission and Anticipated Discharge Date Admission Date: February 20, 2025 Subjective Patient is awake alert and doing well. He has no complaints. Denies any pain. Denies any focal deficits. Physical Exam Physical Exam: Constitutional: In general patient is an obese, chronically ill-appearing elderly male in no distress. He ambulates with a cane. He is alert and oriented without focal neurological deficits. He does have a mild tremor. His head is tilted forward and to the right, but is movable manually, although his neck muscles are not strong enough to move it himself. His carotids do not demonstrate a bruit. His heart is irregular. His lungs are decreased througho ut with sparse expiratory wheezing and coarse breath sounds. His abdomen is protuberant due to body habitus and is soft and nontender with normoactive bowel sounds. Radial and brachial pulses are +3. Femoral pulses are +3 on the right, +2 on the left. His lower extremities the pulses are nonpalpable, but are easily dopplerable. He does have scarring of his left anterior lower leg from previous trauma. He has a purplish discoloration of the lower legs bilaterally consistent with chronic venous insufficiency. There are no open wounds at this point. He does have +3 edema of the lower legs. His neuro exam is grossly intact. Constitutional: WD/WN, vitals as above Neck: trachea midline Respiratory: normal respiratory effort; no respiratory distress Cardiovascular: Rate/Rhythm: + irregularly irregular Skin: + incision (Dressing is dry and clean.) Neurologic: CN's II-XI intact bilaterally and moves all extremities Psychiatric: A+Ox3, euthymic affect Results & Data Vital Signs (Past 12 Hours) Vital Signs Pulse Pulse Resp BP Pulse Ox O2 Del Method O2 Flow Rate 02/21/25 08:00 91 H 02/21/25 07:14 69 16 91 Room Air 02/21/25 05:01 120/76 02/21/25 05:01 120/76 02/21/25 05:00 66 15 02/21/25 04:09 74 18 96 02/21/25 04:01 127/69 02/21/25 04:01 127/02/21/25 04:01 127/69 02/21/25 03:48 77 18 95 02/21/25 03:01 121/59 L 02/21/25 03:00 84 20 93 02/21/25 02:00 122/62 02/21/25 02:00 122/62 02/21/25 02:00 75 19 93 02/21/25 01:15 84 24 95 02/21/25 01:01 114/65 02/21/25 01:01 114/65 02/21/25 01:01 114/65 02/21/25 00:22 75 14 96 Nasal Cannula 2 02/21/25 00:15 84 21 96 02/21/25 00:03 88 18 96 02/21/25 00:00 128/66 02/21/25 00:00 128/66 02/20/25 23:54 86 18 95 02/20/25 23:06 78 8 L 94 02/20/25 23:01 126/68 02/20/25 22:39 80 22 95 02/20/25 22:00 77 18 89 L 02/20/25 21:01 126/79 02/20/25 21:01 126/79 02/20/25 21:00 86 21 91 02/20/25 20:45 85 16 94 02/20/25 20:30 75 19 96
[2025-02-21 08:53] LABS: Hemoglobin A1C 9.3 % (4.5-5.6)
[2025-02-21] MEDS ORDERED: LANTUS PER UNIT CHARGE SC SCH (09:00)
--- NOTE | 2025-02-21 09:29 | Discharge Summary ---
Date of Service February 21, 2025 Admission HPI Per Admitting Provider Mr. Donahue is an elderly male who presents to vascular surgery clinic today as a new patient in consultation for carotid disease and peripheral arterial disease. Patient states he has been following with his [facility] rough opener who recently performed an angiogram of his lower extremities due to recurrent cellulitis and small draining ulcers on his shins related to chronic edema. The angiogram indicated a an occlusion of his left common femoral artery, and patient was referred here for open surgical intervention. Additionally some recent carotid imaging had indicated severe stenoses bilaterally. Patient denies any history of stroke in the past. He denies any recent symptoms of cerebrovascular insufficiency including amaurosis, unilateral extremity weakness numbness or tingling, difficulty speaking or swallowing, facial droop, sudden onset confusion. He does complain of some calf claudication symptoms worse in the left calf than the right, after ambulating about 30 yards. He does use a cane for ambulation and gets short of breath with ambulating as well from COPD, and he is supposed to wear oxygen all day long, but does not wear it regularly. Patient denies any rest pain, nonhealing wounds or ulcers of the toes or feet, headache, fever, chest pain, shortness of breath at rest, abdominal pain, nausea, vomiting, other complaints. Patient does have poor neck strength and neck mobility due to a previous accident, which causes him to tilt his head forward into the right. Admission Exam Per Admitting Provider Constitutional: In general patient is an obese, chronically ill-appearing elderly male in no distress. He ambulates with a cane. He is alert and oriented without focal neurological deficits. He does have a mild tremor. His head is tilted forward and to the right, but is movable manually, although his neck muscles are not strong enough to move it himself. His carotids do not demonstrate a bruit. His heart is irregular. His lungs are decreased throughout with sparse expiratory wheezing and coarse breath sounds. His abdomen is protuberant due to body habitus and is soft and nontender with normoactive bowel sounds. Radial and brachial pulses are +3. Femoral pulses are +3 on the right, +2 on the left. His lower extremities the pulses are nonpalpable, but are easily dopplerable. He does have scarring of his left anterior lower leg from previous trauma. He has a purplish discoloration of the lower legs bilaterally consistent with chronic venous insufficiency. There are no open wounds at this point. He does have +3 edema of the lower legs. His neuro exam is grossly intact. Principal Diagnosis Right internal carotid artery stenosis Discharge Exam Constitutional: In general patient is an obese, chronically ill-appearing elderly male in no distress. He ambulates with a cane. He is alert and oriented without focal neurological deficits. He does have a mild tremor. His head is tilted forward and to the right, but is movable manually, although his neck muscles are not strong enough to move it himself. His carotids do not demonstrate a bruit. His heart is irregular. His lungs are decreased throughout with sparse expiratory wheezing and coarse breath sounds. His abdomen is protuberant due to body habitus and is soft and nontender with normoactive bowel sounds. Radial and brachial pulses are +3. Femoral pulses are +3 on the right, +2 on the left. His lower extremities the pulses are nonpalpable, but are easily dopplerable. He does have scarring of his left anterior lower leg from previous trauma. He has a purplish discoloration of the lower legs bilaterally consistent with chronic venous insufficiency. There are no open wounds at this point. He does have +3 edema of the lower legs. His neuro exam is grossly intact. Constitutional WD/WN, vitals as above Neck trachea midline Respiratory normal respiratory effort; no respiratory distress Cardiovascular Rate/Rhythm: + irregularly irregular Skin + incision (Dressing is dry and clean.) Neurologic CN's II-XI intact bilaterally and moves all extremities Psychiatric A+Ox3, euthymic affect Discharge Data Allergies Allergy/AdvReac Type Severity Reaction Status Date / Time chlorhexidine Allergy Mild red, itchy Verified 02/20/25 06:49 skin doxycycline Allergy Mild red, itchy Verified 02/20/25 06:49 skin Penicillins Allergy Mild Hives Verified 02/20/25 06:49 Consultations 02/20/25 11:51 Consult Change Manager Routine Procedures Performed Operation Date: 02/20/25 08:00 Actual Procedures p Right Side Transcarotid Artery Revascularization(Right) - Humberto Martinez MD Ordered Studies 02/20/25 07:16 EV angio carotid cerv RT Routine Hospital Course (1) S/P vascular surgery: Patient is doing well status post right TCAR. The plan is to discharge today. Total Time Total Time Spent Total Time Spent (In Minutes): x Discharge Plan Discharge Items Patient Disposition: Home - Self-Care Reason For Visit: Right Internal Carotid Artery Stenosis Discharge Diagnosis: Right internal carotid artery stenosis Activity: Per Instructions section Non-emergency contact: Surgeon Call non-emergency contact if: your temperature is above 101.5, your wound has increased redness, your wound has increased drainage and your wound pain has increased Follow-up/Referrals: Tracy Estrada CRNP [Primary Care Provider] - Diet: Carb Consistent or DM2 and Heart Healthy Addtl Attending Provider Instructions: SPECIAL CARE INSTRUCTIONS: Diet: * You may return to previous diet. Medications: * Continue to take Aspirin, Brilinta and statin as directed. Incision Care: * You may shower, but do not rub incision. You may let the warm soapy water run over it. Be sure to dry the incision well after bathing. * Do not shave directly over the incision until it is healed. * DO NOT IMMERSE THE INCISION IN A TUB/POOL/etc. UNTIL HEALED. Restrictions: * Do not drive for at least one week or if you are still taking any narcotic pain medication. * Do not lift anything heavier than a gallon of milk for one week after going home. Possible Complications: * Numbness - It is normal to have some numbness around the incision. Numbness can extend beyond the incision to areas of the neck, ear and face. The numbness is due to bruising of nerves during the surgery and will gradually improve over a period of months. * Hoarseness/Difficulty Speaking and Swallowing - The bruising of nerves in the neck can also cause a hoarse voice, difficulty speaking or swallowing. This may improve over time, HOWEVER, if it continues for more than a few days please contact our office ([phone]). * Excessive Swelling - There will be some swelling immediately after surgery which usually resolves within one week. If you notice that the swelling is getting worse, notify your surgeon ([phone]). * Drainage/Bleeding - If there is any drainage or bleeding, it should be a very small amount (less than a teaspoon per day). If you have excessive bleeding or drainage from the incision, call your surgeon ([phone]) right away. ACTIVATION OF EMERGENCY MEDICAL SYSTEM: Call 911, immediately, if you experience any of the following: Warning Signs and Symptoms of Stroke: * Sudden numbness or weakness of the face, arm or leg, especially on one side of the body * Sudden confusion, trouble speaking or understanding * Sudden trouble seeing in one or both eyes * Sudden trouble walking, dizziness, loss of balance or coordination * Sudden severe headache with no cause Do not delay calling 911 if you experience any warning signs or symptoms of a stroke. Delay in seeking medical attention may affect what treatments can be given to you. Risk Factors for Stroke: You can reduce your chances of stroke by working with your medical provider to adopt a healthy lifestyle. Some specific ways to lower your chance of stroke are: * If you are a smoker, now is the time to stop smoking cigarettes * If you are diabetic, improve the control of your blood sugars * Avoid excessive amounts of alcohol * Control high blood pressure * Lose weight if you are overweight * Be sure to lead an active lifestyle * Eat a healthy diet low in salt, cholesterol and fat You should know about other risk factors for stroke that you are unable to control. These include: * Age 55 years or older * Male gender * Certain racial groups: , or / * Family History of Stroke, Mini stroke or Heart Attack * Sickle Cell Disease You will be receiving a call from the Vascular Surgery Nurse after you are discharged. FOLLOW UP VISIT: It is important for you to keep your follow up appointments with your medical provider. Keep any scheduled doctor appointments. Call [phone] to schedule a follow up appointment if one not already scheduled. Pending Studies at Discharge: No Stand-Alone Forms: My [facility], Smoking Cessation Medications and DC Order Prescriptions: New oxycodone-acetaminophen [Percocet] 5-325 mg tablet 1 tab PO Q8H PRN (Reason: pain) Qty: 10 0RF Continued furosemide 80 mg Tablet 80 mg PO BID metformin 1,000 mg Tablet 500 mg PO BID aspirin 81 mg Tablet 81 mg PO DAILY digoxin 125 mcg (0.125 mg) Tablet 125 mcg PO QAM lisinopril 2.5 mg Tablet 2.5 mg PO QAM diltiazem HCl 360 mg Tablet Extended Release 24 Hr 360 mg PO QAM fenofibrate nanocrystallized 145 mg Tablet 145 mg PO QAM metoprolol succinate 50 mg Tablet Extended Release 24 Hr 75 mg PO BID insulin lispro [Humalog KwikPen Insulin] 100 unit/mL Insulin Pen 25 unit SUBCUT UD Rx Instructions: before meals insulin glargine [Lantus Solostar U-100 Insulin] 100 unit/mL (3 mL) Insulin Pen 48 unit SUBCUT BID apixaban 5 mg Tablet 5 mg PO BID potassium chloride 20 mEq Tablet Extended Release 20 meq PO QAM empagliflozin 10 mg Tablet 10 mg PO QAM dulaglutide 3 mg/0.5 mL Pen Injector 3 mg SUBCUT Q7D Patient Comments: sundays rosuvastatin 40 mg Tablet 40 mg PO QPM Yupelri 175 mcg/3 mL Solution For Nebulization 175 mcg INHALATION QPM nystatin 100,000 unit/gram powder 1 applic topical BID Qty: 60 0RF ticagrelor [Brilinta] 90 mg Tablet 90 mg PO BID tamsulosin 0.4 mg Capsule 0.4 mg PO DAILY Ohtuvayre 3 mg/2.5 mL Suspension For Nebulization 2.5 ml INHALATION AMPM cholecalciferol (vitamin D3) [Vitamin D3] 125 mcg (5,000 unit) Tablet 50,000 unit PO WK Discharge Orders: Discharge Order (Routine); Ordered 02/21/25 Ordered By: Humberto Martinez Admission Data Admit Date/Time: 02/20/25 07:36 Attending Provider: Humberto Martinez Admit Provider: Humberto Martinez Primary Care Provider: Tracy Estrada Other Providers: Tez Escoto; Luis Eduardo Baig; Virgil Hale; Edie Grande; Louis Wood; Abi Lake; Romeo Parson; Janelle Barreto
--- NOTE | 2025-02-21 10:58 | Critical Care Progress Note ---
Date of Service February 21, 2025 Assessment & Plan (1) Carotid stenosis, bilateral: (2) CKD (chronic kidney disease): (3) Carotid artery disease: (4) Pulmonary HTN: (5) CAD (coronary artery disease): (6) On home oxygen therapy: (7) History of COPD: (8) Hx of congestive heart failure: (9) Postoperative hypotension: Plan Nito Donahue is a 69-year-old male with past medical history of COPD on home oxygen, CAD, HFrEF last EF 55-60%, CKD, PAD, SSS s/p PPM, pulmonary hype rtension, carotid stenosis, KEITH noncompliant with CPAP, diabetes Mellitus Type II, and atrial fibrillation on Eliquis; who presented to [facility] on 02/20/2025 for a planned right carotid TCAR. Postoperative hypotension related to carotid sinus hypersensitivity in setting of TCAR. -Phenylephrine drip weaned off. -Monitor Cartoid stenosis s/p right TCAR -Neurovascular checks per protocol -SBP > 100. Currently on 0.1 phenylephrine to maintain BP goal. -Cont aspirin and tricagrelor COPD; chronic hypoxemia on oxygen at home -On oxygen at home though no always compliant -Maintain SpO2 > 90% -Currently on 4L nasal cannula -Continue duonebs q6R CAD; PAD; atrial fibrillation; hyperlipidemia; pulmonary hypertension -Continue apixiban to start 02/21/2025 in am. -Continue digoxin and diltiazem. -Continue furosemide. -Cont fenofibrate and rosuvastatin Diabetes Mellitus Type II -Insulin hyperglycemia protocol ordered. -Hgba1c pending Chronic kidney disease stage 3a -Avoid nephrotxic agents -Monitor renal function in am. Admission and Anticipated Discharge Date Admission Date: February 20, 2025 Subjective Patient had a good night and is sitting up in a chair. Denies any chest pain, dizziness or headaches. No shortness of breath. Review of Systems Review of Systems: All systems reviewed & are unremarkable except as noted in HPI & below Physical Exam Constitutional: WD/WN, vitals as above Neck: trachea midline Respiratory: normal respiratory effort; no respiratory distress Cardiovascular: Rate/Rhythm: + irregularly irregular Skin: + incision (Dressing is dry and clean.) Neurologic: CN's II-XI intact bilaterally and moves all extremities Psychiatric: A+Ox3, euthymic affect Results & Data Results & Data Vital Signs (Past 12 Hours) Vital Signs Pulse Pulse Resp BP Pulse Ox O2 Del Method O2 Flow Rate 02/21/25 09:00 88 17 02/21/25 08:00 91 H 02/21/25 07:51 78 19 138/89 94 02/21/25 07:14 69 16 91 Room Air 02/21/25 06:54 65 19 115/55 L 92 02/21/25 06:21 75 17 122/59 L 94 02/21/25 05:01 120/76 02/21/25 05:01 120/76 02/21/25 05:00 66 15 02/21/25 04:09 74 18 96 02/21/25 04:01 127/69 02/21/25 04:01 127/69 02/21/25 04:01 127/69 02/21/25 03:48 77 18 95 02/21/25 03:01 121/59 L 02/21/25 03:00 84 20 93 02/21/25 02:00 122/62 02/21/25 02:00 122/62 02/21/25 02:00 75 19 93 02/21/25 01:15 84 24 95 02/21/25 01:01 114/65 02/21/25 01:01 114/65 02/21/25 01:01 114/65 02/21/25 00:22 75 14 96 Nasal Cannula 2 02/21/25 00:15 84 21 96 02/21/25 00:03 88 18 96 02/21/25 00:00 128/66 02/21/25 00:00 128/66 02/20/25 23:54 86 18 95 02/20/25 23:06 78 8 L 94 02/20/25 23:01 126/68 Coding Level of Care Code 99926 SUB INP/OBS CARE 08/20MIN Diagnoses Carotid stenosis, bilateral I65.23 CKD (chronic kidney disease) N18.9 Carotid artery disease I77.9 Pulmonary HTN I27.20 CAD (coronary artery disease) I25.10 On home oxygen therapy Z99.81 History of COPD Z87.09 Hx of congestive heart failure Z86.79 Postoperative hypotension I95.81
[2025-02-26] MEDS ORDERED: ERGOCALCIFEROL 1250 MCG (50,000 UNITS) CAP PO SCH (09:00)
== END 2025-02-21 11:53 | disposition home or self-care (01) | DRG 35 ==
LOC: ASU 06:08 → 1E 07:36
PROC: EV.TCAR (2025-02-20 08:00)

== ENCOUNTER 2025-04-04 06:32 | Inpatient (IN) ==
--- NOTE | 2025-03-31 10:44 | Anesthesiology Consultation ---
Date of Service March 31, 2025 Assessment & Plan (1) Encounter for pre-operative examination: - Check BSG DOS - GLP-1 medication instructions: Patient informed by PAT to stop 7 days prior to surgery. DOS 04/04/25. Advised last dose to be 03/26/25. - Infectious disease screening: Per assessment on 03/31/25- No known recent infectious disease contacts or current infectious disease symptoms. - Apixaban/Brilinta instructions per surgeon/prescriber - Patient seen by cardiology 08/11/2024: seen for cardiac evaluation and review of medications. Patient feeling well. Denies chest pain. Functional class II dyspnea unchanged from baseline. Notes worsening claudication and feeling like his legs give out with ambulation. Has known PAD with prior RN ADVANCED and stentingwill update arterial ultrasound to bilateral lower extremities. Has multiple areas of scabbing to bilateral anterior shins. Reports he hits his legs on wood pile and scratches area because of dry skin. Stressed importance of using lotion. Recommendationscontinue current medications. Hypertension well-controlled. Hyperlipidemiaon statin. PAFon Eliquis. Carotid dopplers to assess for carotid stenosis regarding CAD. Encouraged daily exercise. Pacer remote as scheduled. KEITH on CPAP. Arterial ultrasound to bilateral lower extremities TOREY with PVR regarding PADworsening claudication. Avoid scratching legs and creating open sores that would be susceptible to infectionuse lotion daily for skin care. - Cardiology letter 12/28/2024: Prior to Right TCAR (performed 02/07/25 at [facility]) > Patient is low to intermediate cardiac risk for upcoming TCAR procedure. - S/P Right TCAR (02/07/25): Grade 1 view, Glidescope#4, ETT 8.0, [facility] - Medtronic pacemaker: Left sided pacemaker. Patient scheduled for left TCAR. Case reviewed by Dr. Glass. Recommendation for pacer rep DOS. Mirna/OR made aware. Received confirmation via email from [employer] rep that they will be present/available DOS. Chart Review Chart Review: Acceptable Risk for Surgery (pending evaluation DOS) and Patient NOT seen in Pre Admission Testing History Surgery Operation Date: 04/04/25 09:50 Proposed Procedures p Left Transcarotid Artery Revascularization - Humberto Martinez MD Height/Weight Height: 5 ft 10 in Weight: 111.13 kg Allergies Allergy/AdvReac Type Severity Reaction Status Date / Time chlorhexidine Allergy Mild red, itchy Verified 03/31/25 09:45 skin doxycycline Allergy Mild red, itchy Verified 03/31/25 09:45 skin Penicillins Allergy Mild Hives Verified 03/31/25 09:45 Medications Home Medications Medication Instructions Recorded Confirmed Last Taken apixaban 5 mg tablet 5 mg PO BID 01/31/25 03/31/25 02/17/25 aspirin 81 mg tablet 81 mg PO QAM 01/31/25 03/31/25 02/19/25 17:00 digoxin 125 mcg (0.125 mg) tablet 125 mcg PO QAM 01/31/25 03/31/25 02/19/25 diltiazem HCl 360 mg 360 mg PO QAM 01/31/25 03/31/25 02/19/25 tablet,extended release 24 hr dulaglutide 3 mg/0.5 mL 3 mg subcut Q7D 01/31/25 03/31/25 02/12/25 subcutaneous pen injector empagliflozin 10 mg tablet 10 mg PO QAM 01/31/25 03/31/25 02/15/25 fenofibrate nanocrystallized 145 145 mg PO QAM 01/31/25 03/31/25 02/17/25 mg tablet furosemide 80 mg tablet 80 mg PO BID 01/31/25 03/31/25 02/19/25 insulin glargine 100 unit/mL (3 48 unit subcut BID 01/31/25 03/31/25 02/19/25 20:00 mL) subcutaneous pen (Lantus Solostar U-100 Insulin) insulin lispro 100 unit/mL 25 unit subcut UD 01/31/25 03/31/25 1 Week Ago subcutaneous pen (Humalog KwikPen ~02/13/25 (U-100) Insulin) lisinopril 2.5 mg tablet 5 mg PO QAM 01/31/25 03/31/25 02/19/25 metformin 1,000 mg tablet 500 mg PO BID 01/31/25 03/31/25 02/17/25 metoprolol succinate 50 mg 75 mg PO BID 01/31/25 03/31/25 02/19/25 tablet,extended release 24 hr potassium chloride 20 mEq 20 meq PO QAM 07/08/25 09/05/25 07/27/25 tablet,extended release revefenacin 175 mcg/3 mL solution 175 mcg inhalation QPM 01/31/25 03/31/25 02/19/25 for nebulization (Yupekatherinei) rosuvastatin 40 mg tablet 40 mg PO QPM 01/31/25 03/31/25 02/19/25 nystatin 100,000 unit/gram topical 1 applic topical BID #60 grams 02/07/25 03/31/25 02/19/25 powder ticagrelor 90 mg tablet (Brilinta) 90 mg PO BID 02/07/25 03/31/25 02/19/25 19:00 cholecalciferol (vitamin D3) 125 50,000 unit PO WK 02/14/25 03/31/25 02/19/25 17:00 mcg (5,000 unit) tablet (Vitamin D3) ensifentrine 3 mg/2.5 mL 2.5 ml inhalation AMPM 02/14/25 03/31/25 02/19/25 suspension for nebulization (Ohtuvayhaley) tamsulosin 0.4 mg capsule 0.4 mg PO QAM 02/14/25 03/31/25 02/19/25 Past Medical History Medical History (Updated 03/31/25 @ 10:31 by Tamra Cotter) Aortic valve stenosis Moderate per 12/2023 ECHO CAD (coronary artery disease) s/p PCI to RCA 2010 and PCI to LAD 2022 Carotid artery disease s/p R TCAR 02/20/25; upcoming L TCAR scheduled CKD (chronic kidney disease) Diabetes mellitus, type 2 IDDM History of atrial fibrillation permanent Afib History of COPD History of COVID-19 (2023) 2023, no residual symptoms History of depression History of hypertension History of urinary retention Hx of atrial flutter s/p ablation 2010 Hx of congestive heart failure EF 50-55% per 12/2023 ECHO Hx of gastroesophageal reflux (GERD) "doesn't take his medicine regularly" Hx of hypercapnia 2015, "spent 8 days intubated at [facility], CO2 levels were at 99%" per Hx of hyperlipidemia Hx of migraines Hx of myocardial infarction (06/2009) 06/2009 Hx of sleep apnea CPAP, non-compliant Noncompliance pt's significant other states pt. is noncompliant with medications, home oxygen and nebulizer treatments Obesity On home oxygen therapy supposed to be on 4L O2 continuously, not always compliant per significant other Pacemaker Due to SSS 02/2021, Medtronic 06/28/2024, new generator placed, [facility], [place] PAD (peripheral artery disease) - s/p iliac artery stent 02/2023 (unsure what side); angioplasty to opposite iliac artery Peripheral angiogram LE- 11/10/24- showed severe PAD involving the left common femoral artery, bilateral SFA (recommended vascular surgery consult for possible H[employer] TRAINER endarterectomy followed by PCI of the bilateral SFA) Pulmonary HTN RVSP 49mmHg 12/2023 ECHO SSS (sick sinus syndrome) per chart review, SSS/2nd or 3rd degree heart block hx; s/p PPM (Medtronic) Past Family History Family History (Updated 03/31/25 @ 10:16 by Eileen Lua PA-C) Other No family history of adverse response to anesthesia Past Surgical History Surgical History History of cardiac radiofrequency ablation (RFA) (2011) 2009, Pravin [facility] @ [place]-"failed" ~2011, [facility] @ [place]failed" History of permanent cardiac pacemaker placement 02/2011, [place], [employer]; f/u dr. cantrell, [facility] 06/28/2024, new generator placed, [facility], [place] > last in-person check 12/2024 History of vascular surgery R TCAR 02/20/25: [place]: Glidescope#4, ETT#8.0 reinforced Hx of colonoscopy Hx of fusion of cervical spine late , [facility], weak muscle on one side-has some ROM limitations per Hx of heart artery stent (02/2023) 06/2009, [place], x2 stents w/Dr. Hernandez 03/13/2023, [facility], [facility]; f/u Dr. Cantrell, [facility] Hx of unilateral orchiectomy "no cancer, just kept swelling up" S/P epidural steroid injection "couple in the past for his neck" S/P insertion of iliac artery stent 02/2023, [facility], stent in one leg; couple weeks later, ballooning of artery opposite leg Social History Smoking Status: Former smoker Do You Dip or Chew Tobacco: Yes Smoking End Date: 2015 Hx Alcohol Use: No Hx Substance Use: No substance use type: does not use Lab Results Anesthesia Preop Results Results Anesthesia Widget: WBC 10.64 K/ul (4.8-10.8) 02/07/25 Hgb 14.5 g/dl (14.0-18.0) 02/07/25 Hct 45.0 % (42.0-52.0) 02/07/25 Plt 208 K/uL (130-400) 02/07/25 Na 141 mmol/L (136-145) 02/07/25 K 4.3 mmol/L (3.5-5.1) 02/07/25 Cl 102 mmol/L (98-107) 02/07/25 CO2 31 mmol/L (21-32) 02/07/25 BUN 30 mg/dl (6-23) H 02/07/25 Creat 1.50 mg/dl (0.6-1.4) H 02/07/25 Glucose Level 191 mg/dl (70-99(Fasting)) H 02/07/25 POC Glucose 165 mg/dl (70-99) H 02/21/25 PT 11.3 Seconds (9.0-12.0) 02/07/25 PTT 28 Seconds (21-31) 02/07/25 INR 1.0 (0.9-1.1) 02/07/25 HA1c 9.3 % (4.5-5.6) H 02/21/25 Blood Type O Positive 02/20/25 Antibody Screen NEGATIVE 02/20/25 Testing Electrocardiogram Date: 02/07/25 Afib with RVR, Rate: 101bpm iRBBB Cannot r/o anterior infarct, age undetermined. Chest X-Ray Date: 02/07/25 Findings: + NAD 1. No acute cardiopulmonary abnormalities identified. 2. Mild Blunting of the left costophrenic angle could be pleural thickening or small effusion. Echocardiogram Date: 01/14/24 EF: 50-55% LV Function: normal RWMA: + none LV wall thickness is mildly increased RV is mildly dilated. RVSP 49mmHg LA mildly-moderately dilated. RA mildly dilated. Moderate Aortic Stenosis (AV mean grad: 22.0mmHg; AV peak grad: 33.0mmHg; AMBREEN, Vmax 0.92cm/S/2; AMBREEN, VTI 1.25cm/S/2)) Mild-Mod TR. Cardiac Catheterization Date: 03/13/23 (multiple attempts to receive legible report unsuccessful; per Cardio note 08/11/24: single vessel obstructive CAD s/p PCI of pLAD with MARISSA) Other Testing Pacemaker Report Date: 01/12/25: (6month read) Medtronic [place] XT DR-MRI; device implant date: 06/28/24 (lead implant date: 03/24/2011) Estimated longevity: 13years and 10months Mode: VVIR Pacing: RV 38.9% (AP: 0%) Treated AT/AF episodes: 0 VT(>4 beats): 6,973 CTA Neck Date: 11/15/2024 1. Eccentric mixed atheromatous plaque causing minimal to mild (up to 30%) luminal narrowing seen involving the left carotid bulb and extending into the origin of the left internal and external carotid arteries. 2. Eccentric mixed atheromatous plaque causing moderate to severe (up to 70%) luminal narrowing seen in the left internal carotid artery. 3. Circumferential mixed atheromatous plaques causing moderate to severe (up to 80%) luminal narrowing seen in the right carotid bulb and origin of right external carotid artery. 4. Eccentric mixed atheromatous plaque causing moderate (at the 60%) luminal narrowing seen in the proximal internal carotid artery. 5. No evidence of aneurysm. No evidence of dissection. Peripheral Angiogram Report Date: 11/10/24 Severe peripheral arterial disease involving the left common femoral artery, b/l SFA
--- NOTE | 2025-04-03 14:17 | History & Physical Report ---
Date of Service April 03, 2025 History of Present Illness Primary Care Provider: DESIREE Helton Name: ANIKET GORDILLO Patient Number: [id number] : 1955 Date of Service: 03/09/2025 Chief Complaint: _Follow-up after right TCAR HPI: _Mr. Gordillo is an elderly male who presents to Dr. Martinez's vascular surgery clinic today for a follow-up appointment after undergoing an uncomplicated right TCAR procedure at [facility] about 2 weeks ago. Patient overall states he is doing well. He states that the yolie in the right side of his neck have been pulling and causing some discomfort. He denies any new complaints of cerebrovascular insufficiency including amaurosis, new extremity weakness numbness or tingling, difficulty speaking or swallowing, facial droop, other complaints. He stated to having some chronic left arm and hand numbness. Patient denies any problems related to his groin puncture as well. Current Home Meds: (Last Updated 03/09 14:52) apixaban (Eliquis 5 mg oral tablet) 5 mg PO bid aspirin (aspirin 81 mg oral delayed release tablet) 81 mg PO Daily digoxin 125 mcg PO Daily dilTIAZem (DilTIAZem (Eqv-Cardizem CD) 120 mg/24 hours oral capsule, extended release) 360 mg PO Daily dulaglutide (Trulicity Pen) 3 mg subQ q7days empagliflozin (Jardiance 10 mg oral tablet) 10 mg PO Daily fenofibrate (fenofibrate 145 mg oral tablet) 145 mg PO Daily furosemide 80 mg PO bid insulin glargine (Lantus Solostar Pen 100 units/mL subcutaneous solution) subQ bid insulin lispro (HumaLOG KwikPen 100 units/mL injectable solution) 25 units ac lisinopril (lisinopril 2.5 mg oral tablet) 2.5 mg PO Daily metFORMIN 1,000 mg PO bid metoprolol (metoprolol succinate 50 mg oral tablet, extended release) See Instructions 1.5 tabs po bid omeprazole (omeprazole 20 mg oral delayed release capsule) 20 mg PO Daily potassium chloride (Potassium Chloride (Qyt-Bpji-Gth M20) 20 mEq oral tablet, extended release) 20 mEq PO Daily rosuvastatin 40 mg PO Daily ticagrelor (Brilinta (ticagrelor) 90 mg oral tablet) 90 mg PO bid Allergies and Sensitivities: chlorhexidine topical(rash) doxycycline(hives) penicillins(Hives) Past Medical History: Problems: Peripheral arterial disease Bilateral carotid artery stenosis HYPERTENSION Weight gain Neck OBJECTIVE Vitals: Last Updated 03/09/25 14:52 Date Temp BP Location Pulse RR SpO2 Pain 03/09/25 138/78 Left Arm 79 91 12/26/24 122/74 Right Arm 68 88 12/26/24 94/62 Left Arm Vital Signs are the last 3 documented. No Orthostatic Data Available Height and Weight: Last Updated 12/26/24 15:51 Date BMI Wt(kg) Wt(lb) Method Ht(cm) (ft-in) Method 12/26/24 35.43 111 244 Standing Scale 177 5-9 08/18/05 119 262 181.00 5-11 Actual 08/15/05 119.3 262 Standing Scale 181.00 5-11 Actual Heights and Weights are the last 3 documented. Physical Exam Constitutional: In general patient is a mildly chronically ill-appearing middle- age male in no distress. He is alert and oriented with no focal deficits. His right supraclavicular incision is clean dry and intact with yolie. These were removed without difficulty or wound dehiscence. There is no erythema ecchymosis or discharge. There is minimal tenderness. Patient does use a cane for ambulation, and does sit in a resting position with his head tilted forward and to the right. This is chronic. His lungs are clear. His heart has a RRR. His abdominal exam is benign. His neuro is grossly intact. ASSESSMENT: _ PLAN: _ 1 ) _status post right TCAR Patient is now about 2 weeks status post uncomplicated right TCAR procedure. He is doing well postoperatively, with no new complaints or concerns. He states he is ready to proceed with his left sided TCAR procedure. The procedure risks benefits and alternatives were discussed with the patient by myself at Dr. Martinez's request. Patient expressed understanding and agreement to proceed. His family was present for today's visit as well. Patient was again advised to remain on his Brilinta in addition to 81 mg aspirin as well as his chronic Eliquis for this procedure. They will call any questions or concerns. They are agreeable to this plan. Thank you for letting us participate in the care of this patient. Signature Line Electronic Signature on File CC: DESIREE Reyes [facility] [address] [place] [id number] * CC: Best Peres MD [facility] [address] [place] [address] * Electronically Reviewed/Signed by: Isabelle Henderson PA-C Author Signature Dt/Tm:03/09/2025 03:44 PM [facility] [place] [address], [address] [place] [address] LM Result Type: HVI Outpt Note Date of Service: March 09, 2025 15:40 EDT Authorization Status: Final Author or Import Date: SUSAN Henderson Lynn on March 09, 2025 15:44 EDT Verified By: SUSAN Henderson Lynn on March 09, 2025 15:44 EDT Encounter info: [id number], [place] [address], Clinic, 03/09/2025 - 03/09/2025 Allergies Allergy/AdvReac Type Severity Reaction Status Date / Time chlorhexidine Allergy Mild red, itchy Verified 03/31/25 09:45 skin doxycycline Allergy Mild red, itchy Verified 03/31/25 09:45 skin Penicillins Allergy Mild Hives Verified 03/31/25 09:45 Home Medications Medication Instructions Recorded Confirmed Type apixaban 5 mg tablet 5 mg PO BID 01/31/25 03/31/25 History aspirin 81 mg tablet 81 mg PO QAM 01/31/25 03/31/25 History digoxin 125 mcg (0.125 mg) tablet 125 mcg PO QAM 01/31/25 03/31/25 History diltiazem HCl 360 mg 360 mg PO QAM 01/31/25 03/31/25 History tablet,extended release 24 hr dulaglutide 3 mg/0.5 mL 3 mg subcut Q7D 01/31/25 03/31/25 History subcutaneous pen injector empagliflozin 10 mg tablet 10 mg PO QAM 01/31/25 03/31/25 History fenofibrate nanocrystallized 145 145 mg PO QAM 01/31/25 03/31/25 History mg tablet furosemide 80 mg tablet 80 mg PO BID 01/31/25 03/31/25 History insulin glargine 100 unit/mL (3 48 unit subcut BID 01/31/25 03/31/25 History mL) subcutaneous pen (Lantus Solostar U-100 Insulin) insulin lispro 100 unit/mL 25 unit subcut UD 01/31/25 03/31/25 History subcutaneous pen (Humalog KwikPen (U-100) Insulin) lisinopril 2.5 mg tablet 5 mg PO QAM 01/31/25 03/31/25 History metformin 1,000 mg tablet 500 mg PO BID 01/31/25 03/31/25 History metoprolol succinate 50 mg 75 mg PO BID 01/31/25 03/31/25 History tablet,extended release 24 hr potassium chloride 20 mEq 20 meq PO QAM 01/31/25 03/31/25 History tablet,extended release revefenacin 175 mcg/3 mL solution 175 mcg inhalation QPM 01/31/25 03/31/25 History for nebulization (Yupelri) rosuvastatin 40 mg tablet 40 mg PO QPM 01/31/25 03/31/25 History nystatin 100,000 unit/gram topical 1 applic topical BID #60 grams 02/07/25 03/31/25 Rx powder ticagrelor 90 mg tablet (Brilinta) 90 mg PO BID 02/07/25 03/31/25 History cholecalciferol (vitamin D3) 125 50,000 unit PO WK 02/14/25 03/31/25 History mcg (5,000 unit) tablet (Vitamin D3) ensifentrine 3 mg/2.5 mL 2.5 ml inhalation AMPM 02/14/25 03/31/25 History suspension for nebulization (Ohtuvayre) tamsulosin 0.4 mg capsule 0.4 mg PO QAM 02/14/25 03/31/25 History Past Med/Surg History Problem List (Updated 03/31/25 @ 10:31 by Tamra Cotter) Encounter for pre-operative examination Carotid stenosis, bilateral Medical History (Updated 03/31/25 @ 10:31 by Tamra Cotter) Obesity CKD (chronic kidney disease) Noncompliance pt's significant other states pt. is noncompliant with medications, home oxygen and nebulizer treatments Aortic valve stenosis Moderate per 12/2023 ECHO Carotid artery disease s/p R TCAR 02/20/25; upcoming L TCAR scheduled Pulmonary HTN RVSP 49mmHg 12/2023 ECHO SSS (sick sinus syndrome) per chart review, SSS/2nd or 3rd degree heart block hx; s/p PPM ([employer]tronic) PAD (peripheral artery disease) - s/p iliac artery stent 02/2023 (unsure what side); angioplasty to opposite iliac artery Peripheral angiogram LE- 11/10/24- showed severe PAD involving the left common femoral artery, bilateral SFA (recommended vascular surgery consult for possible [employer] ADMIN endarterectomy followed by PCI of the bilateral SFA) CAD (coronary artery disease) s/p PCI to RCA 2010 and PCI to LAD 2022 Hx of hypercapnia 2015, "spent 8 days intubated at [facility], CO2 levels were at 99%" per History of urinary retention History of hypertension Hx of hyperlipidemia Hx of gastroesophageal reflux (GERD) "doesn't take his medicine regularly" Diabetes mellitus, type 2 IDDM On home oxygen therapy supposed to be on 4L O2 continuously, not always compliant per significant other History of depression Hx of migraines History of atrial fibrillation permanent Afib Hx of congestive heart failure EF 50-55% per 12/2023 ECHO Pacemaker Due to SSS 02/2021, [employer] 06/28/2024, new generator placed, [facility], [employer] Hx of atrial flutter s/p ablation 2010 Hx of myocardial infarction (06/2009) 06/2009 History of COVID-19 (2023) 2023, no residual symptoms Hx of sleep apnea CPAP, non-compliant History of COPD Surgical History History of vascular surgery R TCAR 02/20/25: [place] Gl[place]#4, ETT#8.0 reinforced Hx of unilateral orchiectomy "no cancer, just kept swelling up" Hx of colonoscopy S/P epidural steroid injection "couple in the past for his neck" Hx of fusion of cervical spine late , [facility], weak muscle on one side-has some ROM limitations per S/P insertion of iliac artery stent 02/2023, [facility], stent in one leg; couple weeks later, ballooning of artery opposite leg History of permanent cardiac pacemaker placement 02/2011, [place], [employer]; f/u dr. cantrell, [facility] 06/28/2024, new generator placed, [facility], [employer] > last in-person check 12/2024 History of cardiac radiofrequency ablation (RFA) (2011) 2009, Praivn Franklin @ [place]-"failed" ~2011, Pravin Franklin @ [place]-"failed" Hx of heart artery stent (02/2023) 06/2009, [place], [place], x2 stents w/Dr. Hernandez 03/13/2023, routine cath, [facility], x1 stent; f/u Dr. 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
[2025-04-04] MEDS ORDERED: SUGAMMADEX SODIUM 200 MG/2 ML VIAL IV ONE (06:39)
[2025-04-04] MEDS ORDERED: PROPOFOL IV EMULSION 10 MG/ML 20 ML VIAL IV ONE (06:39)
[2025-04-04] MEDS ORDERED: DEXAMETHASONE SOD INJ 4 MG/ML VIAL ONE (06:39)
[2025-04-04] MEDS ORDERED: HEPARIN SOD (PORCINE) 1000 UNIT/ML ONE (06:39)
[2025-04-04] MEDS ORDERED: ONDANSETRON INJ 2 MG/ML 2 ML VIAL ONE (06:39)
[2025-04-04] MEDS ORDERED: ESMOLOL HCL INJ 10 MG/ML 10ML VIAL IV ONE (06:39)
[2025-04-04] MEDS ORDERED: PHENYLEPHRINE HCL 25 MG/250 ML NSS IV ONE (06:39)
[2025-04-04] MEDS ORDERED: ROCURONIUM BROMIDE 10 MG/ML 5 ML VIAL IV ONE (06:39)
[2025-04-04] MEDS ORDERED: ETOMIDATE 2 MG/ML 20 ML VIAL IV ONE (06:43)
[2025-04-04] MEDS ORDERED: CISATRACURIUM BESYLATE IV SOLN 2 MG/ML 10 ML VIAL IV ONE ×4 (06:43→09:13)
[2025-04-04] MEDS ORDERED: GLYCOPYRROLATE 0.2 MG/ML VIAL ONE ×2 (06:44→09:03)
[2025-04-04 07:07] LABS: Anion Gap 6.0 (3-11); Blood Urea Nitrogen 24.0 mg/dl (6-23); Calcium 9.4 mg/dl (8.6-10.3); Carbon Dioxide 26.0 mmol/L (21-32); Chloride 109.0 mmol/L (98-107); Creatinine Clr Calc Pharmacy 61.9 ml/min; Glucose 62.0 mg/dl (70-99(Fasting)); Potassium 4.3 mmol/L (3.5-5.1); Sodium 141.0 mmol/L (136-145)
[2025-04-04] MEDS: DEXTROSE 50% 50 ML SYRINGE IV ONE ×2 (07:16→07:20)
[2025-04-04] MEDS ORDERED: SUCCINYLCHOLINE CHLORIDE 20 MG/ML 10 ML VIAL IV ONE (07:19)
[2025-04-04] MEDS: SODIUM CHLORIDE 0.9% 1,000 ML IV SCH ×2 (07:20→13:06)
--- NOTE | 2025-04-04 07:31 | History & Physical Bridge Note ---
Date of Service April 04, 2025 History & Physical Bridge Note I have examined the patient, reviewed the History & Physical and in the interval since the performance of the History & Physical I have noted the following changes of clinical significance: no changes noted
[2025-04-04] MEDS: CLINDAMYCIN/D5W 900 MG/50 ML BAG IV SCH (08:00)
--- NOTE | 2025-04-04 08:00 | History & Physical Report ---
Date of Service April 04, 2025 History of Present Illness Primary Care Provider: DESIREE Helton Date of Service April 03, 2025 History of Present Illness Primary Care Provider: DESIREE Helton Name: ANIKET GORDILLO Patient Number: [id number] : 1955 Date of Service: 03/09/2025 Chief Complaint: _Follow-up after right TCAR HPI: _Mr. Gordillo is an elderly male who presents to Dr. Martinez's vascular surgery clinic today for a follow-up appointment after undergoing an uncomplicated right TCAR procedure at [facility]. Patient overall states he is doing well. . He denies any new complaints of cerebrovascular insufficiency including amaurosis, new extremity weakness numbness or tingling, difficulty speaking or swallowing, facial droop, other complaints. He stated to having some chronic left arm and hand numbness. Patient denies any problems related to his groin puncture as well. Current Home Meds: (Last Updated 03/09 14:52) apixaban (Eliquis 5 mg oral tablet) 5 mg PO bid aspirin (aspirin 81 mg oral delayed release tablet) 81 mg PO Daily digoxin 125 mcg PO Daily dilTIAZem (DilTIAZem (Eqv-Cardizem CD) 120 mg/24 hours oral capsule, extended release) 360 mg PO Daily dulaglutide (Trulicity Pen) 3 mg subQ q7days empagliflozin (Jardiance 10 mg oral tablet) 10 mg PO Daily fenofibrate (fenofibrate 145 mg oral tablet) 145 mg PO Daily furosemide 80 mg PO bid insulin glargine (Lantus Solostar Pen 100 units/mL subcutaneous solution) subQ bid insulin lispro (HumaLOG KwikPen 100 units/mL injectable solution) 25 units ac lisinopril (lisinopril 2.5 mg oral tablet) 2.5 mg PO Daily metFORMIN 1,000 mg PO bid metoprolol (metoprolol succinate 50 mg oral tablet, extended release) See Instructions 1.5 tabs po bid omeprazole (omeprazole 20 mg oral delayed release capsule) 20 mg PO Daily potassium chloride (Potassium Chloride (Ueo-Ssug-Qpr M20) 20 mEq oral tablet, extended release) 20 mEq PO Daily rosuvastatin 40 mg PO Daily ticagrelor (Brilinta (ticagrelor) 90 mg oral tablet) 90 mg PO bid Allergies and Sensitivities: chlorhexidine topical(rash) doxycycline(hives) penicillins(Hives) Past Medical History: Problems: Peripheral arterial disease Bilateral carotid artery stenosis HYPERTENSION Weight gain Neck OBJECTIVE Vitals: Last Updated 03/09/25 14:52 Date Temp BP Location Pulse RR SpO2 Pain 03/09/25 138/78 Left Arm 79 91 12/26/24 122/74 Right Arm 68 88 12/26/24 94/62 Left Arm Vital Signs are the last 3 documented. No Orthostatic Data Available Height and Weight: Last Updated 12/26/24 15:51 Date BMI Wt(kg) Wt(lb) Method Ht(cm) (ft-in) Method 12/26/24 35.43 111 244 Standing Scale 177 5-9 08/18/05 119 262 181.00 5-11 Actual 08/15/05 119.3 262 Standing Scale 181.00 5-11 Actual Heights and Weights are the last 3 documented. Physical Exam Constitutional: In general patient is a mildly chronically ill-appearing middle- age male in no distress. He is alert and oriented with no focal deficits. His right supraclavicular incision is clean dry and intact with yolie. These were removed without difficulty or wound dehiscence. There is no erythema ecchymosis or discharge. There is minimal tenderness. Patient does use a cane for ambulation, and does sit in a resting position with his head tilted forward and to the right. This is chronic. His lungs are clear. His heart has a RRR. His abdominal exam is benign. His neuro is grossly intact. ASSESSMENT: _ PLAN: _ 1 ) Left internal carotid artery stenosis. Patient is to have a left tcar for severe stenosis of the left carotid. I have discussed the risks options and benefits of the procedure with the patient. The patient understands the risks options and benefits and agrees to the procedure. Signature Line Electronic Signature on File CC: DESIREE Reyes [facility] [id number] [facility] [id number] * CC: Best Peres MD [facility] [address] [facility] [address] * Electronically Reviewed/Signed by: Isabelle Hendesron PA-C Author Signature Dt/Tm:03/09/2025 03:44 PM [facility] [place] [address], [address] [place] [address] LM Result Type:HVI Outpt Note Date of Service:March 09, 2025 15:40 EDT Authorization Status:Final Author or Import Date:SUSAN Henderson Lynn on March 09, 2025 15:44 EDT Verified By:SUSAN Henderson Lynn on March 09, 2025 15:44 EDT Encounter info:[id number], [place] [address], [facility], 03/09/2025 - 03/09/2025 Allergies Allergy/AdvReac Type Severity Reaction Status Date / Time chlorhexidine Allergy Mild red, itchy Verified 03/31/25 09:45 skin doxycycline Allergy Mild red, itchy Verified 03/31/25 09:45 skin Penicillins Allergy Mild Hives Verified 03/31/25 09:45 Home Medications Medication Instructions Recorded Confirmed Type apixaban 5 mg tablet 5 mg PO BID 01/31/25 03/31/25 History aspirin 81 mg tablet 81 mg PO QAM 01/31/25 03/31/25 History digoxin 125 mcg (0.125 mg) tablet 125 mcg PO QAM 01/31/25 03/31/25 History diltiazem HCl 360 mg 360 mg PO QAM 01/31/25 03/31/25 History tablet,extended release 24 hr dulaglutide 3 mg/0.5 mL 3 mg subcut Q7D 01/31/25 03/31/25 History subcutaneous pen injector empagliflozin 10 mg tablet 10 mg PO QAM 01/31/25 03/31/25 History fenofibrate nanocrystallized 145 145 mg PO QAM 01/31/25 03/31/25 History mg tablet furosemide 80 mg tablet 80 mg PO BID 01/31/25 03/31/25 History insulin glargine 100 unit/mL (3 48 unit subcut BID 01/31/25 03/31/25 History mL) subcutaneous pen (Lantus Solostar U-100 Insulin) insulin lispro 100 unit/mL 25 unit subcut UD 01/31/25 03/31/25 History subcutaneous pen (Humalog KwikPen (U-100) Insulin) lisinopril 2.5 mg tablet 5 mg PO QAM 01/31/25 03/31/25 History metformin 1,000 mg tablet 500 mg PO BID 01/31/25 03/31/25 History metoprolol succinate 50 mg 75 mg PO BID 01/31/25 03/31/25 History tablet,extended release 24 hr potassium chloride 20 mEq 20 meq PO QAM 01/31/25 03/31/25 History tablet,extended release revefenacin 175 mcg/3 mL solution 175 mcg inhalation QPM 01/31/25 03/31/25 History for nebulization (Yupelri) rosuvastatin 40 mg tablet 40 mg PO QPM 01/31/25 03/31/25 History nystatin 100,000 unit/gram topical 1 applic topical BID #60 grams 02/07/25 03/31/25 Rx powder ticagrelor 90 mg tablet (Brilinta) 90 mg PO BID 02/07/25 03/31/25 History cholecalciferol (vitamin D3) 125 50,000 unit PO WK 02/14/25 03/31/25 History mcg (5,000 unit) tablet (Vitamin D3) ensifentrine 3 mg/2.5 mL 2.5 ml inhalation AMPM 02/14/25 03/31/25 History suspension for nebulization (Ohtuvayre) tamsulosin 0.4 mg capsule 0.4 mg PO QAM 02/14/25 03/31/25 History Past Med/Surg History Problem List (Updated 03/31/25 @ 10:31 by Tamra Cotter) Encounter for pre-operative examination Carotid stenosis, bilateral Medical History (Updated 03/31/25 @ 10:31 by Tamra Cotter) Obesity CKD (chronic kidney disease) Noncompliance pt's significant other states pt. is noncompliant with medications, home oxygen and nebulizer treatmentsAortic valve stenosis Moderate per 12/2023 ECHOCarotid artery disease s/p R TCAR 02/20/25; upcoming L TCAR scheduledPulmonary HTN RVSP 49mmHg 12/2023 ECHOSSS (sick sinus syndrome) per chart review, SSS/2nd or 3rd degree heart block hx; s/p PPM ([employer])PAD (peripheral artery disease) - s/p iliac artery stent 02/2023 (unsure what side); angioplasty to opposite iliac artery Peripheral angiogram LE- 11/10/24- showed severe PAD involving the left common femoral artery, bilateral SFA (recommended vascular surgery consult for possible OUTSIDE SALES MANAGER endarterectomy followed by PCI of the bilateral SFA)CAD (coronary artery disease) s/p PCI to RCA 2010 and PCI to LAD 2022Hx of hypercapnia 2015, "spent 8 days intubated at [facility], CO2 levels were at 99%" per wifeHistory of urinary retention History of hypertension Hx of hyperlipidemia Hx of gastroesophageal reflux (GERD) "doesn't take his medicine regularly"Diabetes mellitus, type 2 IDDMOn home oxygen therapy supposed to be on 4L O2 continuously, not always compliant per significant otherHistory of depression Hx of migraines History of atrial fibrillation permanent AfibHx of congestive heart failure EF 50-55% per 12/2023 ECHOPacemaker Due to SSS 02/2021, [employer] 06/28/2024, new generator [facility] 2010Hx of myocardial infarction (06/2009) 06/2009History of COVID-19 (2023) 2023, no residual symptomsHx of sleep apnea CPAP, non-compliantHistory of COPD Surgical History History of vascular surgery R TCAR 02/20/25: [place]: Glidescope#4, ETT#8.0 reinforcedHx of unilateral orchiectomy "no cancer, just kept swelling up"Hx of colonoscopy S/P epidural steroid injection "couple in the past for his neck"Hx of fusion of cervical spine late , [facility], weak muscle on one side-has some ROM limitations per wifeS/P insertion of iliac artery stent 02/2023, [facility] [place], stent in one leg; couple weeks later, ballooning of artery opposite legHistory of permanent cardiac pacemaker placement 02/2011, [place], [facility]; f/u dr. cantrell, [facility] 06/28/2024, new generator placed, [facility], [employer] > last in-person check 12/2024History of cardiac radiofrequency ablation (RFA) (2011) 2009, Pravin Franklin @ [place]failed" ~2011, Pravin Franklin @ [place]failed"Hx of heart artery stent (02/2023) 06/2009, [place], [place], x2 stents w/Dr. Hernandez 03/13/2023, routine cath, [facility], x1 stent; f/u Dr. Cantrell, [facility] Family History (Updated 03/31/25 @ 10:16 by Eileen Lua PA-C) Other No family history of adverse response to anesthesia Social History Smoking Status: Former smoker Tobacco Type: Smokeless Tobacco (Dip or Chew) Smoking End Date: 2015; Second Hand Exposure: No; Do You Dip or Chew Tobacco: Yes; Tobacco Cessation Education Requested by Patient: No Hx Alcohol Use: No Hx Substance Use: No Preferred Language: Malagasy Communication Ability: Effective Gas Technician Required: No Beliefs That Will Affect Care: None Current Living Situation: Spouse Other Information That Helps Us Care for You: No Feels Safe at Home: Yes Safety Concerns: Feels Safe At This Time Assistive Devices: Cane and Oxygen - Continuous Assistive Devices Comment: 4L O2 continuous (noncompliant) Signed By: <Electronically signed by Humberto Martinez MD> 04/03/25 1417 Created: 04/03/25 1415 The status of this report is Signed. Draft = Not yet reviewed or approved by Medical Physician. Signed = Reviewed and approved by Medical Physician. Allergies Allergy/AdvReac Type Severity Reaction Status Date / Time chlorhexidine Allergy Mild red, itchy Verified 04/04/25 06:47 skin doxycycline Allergy Mild red, itchy Verified 04/04/25 06:47 skin Penicillins Allergy Mild Hives Verified 04/04/25 06:47 Home Medications Medication Instructions Recorded Confirmed Type apixaban 5 mg tablet 5 mg PO BID 01/31/25 04/04/25 History aspirin 81 mg tablet 81 mg PO QAM 01/31/25 04/04/25 History digoxin 125 mcg (0.125 mg) tablet 125 mcg PO QAM 01/31/25 04/04/25 History diltiazem HCl 360 mg 360 mg PO QAM 01/31/25 04/04/25 History tablet,extended release 24 hr dulaglutide 3 mg/0.5 mL 3 mg subcut Q7D 01/31/25 04/04/25 History subcutaneous pen injector empagliflozin 10 mg tablet 10 mg PO QAM 01/31/25 04/04/25 History fenofibrate nanocrystallized 145 145 mg PO QAM 01/31/25 04/04/25 History mg tablet furosemide 80 mg tablet 80 mg PO BID 01/31/25 04/04/25 History insulin glargine 100 unit/mL (3 48 unit subcut BID 01/31/25 04/04/25 History mL) subcutaneous pen (Lantus Solostar U-100 Insulin) insulin lispro 100 unit/mL 25 unit subcut UD 01/31/25 04/04/25 History subcutaneous pen (Humalog KwikPen (U-100) Insulin) lisinopril 2.5 mg tablet 5 mg PO QAM 01/31/25 04/04/25 History metformin 1,000 mg tablet 500 mg PO BID 01/31/25 04/04/25 History metoprolol succinate 50 mg 75 mg PO BID 01/31/25 04/04/25 History tablet,extended release 24 hr potassium chloride 20 mEq 20 meq PO QAM 01/31/25 04/04/25 History tablet,extended release revefenacin 175 mcg/3 mL solution 175 mcg inhalation QPM 01/31/25 04/04/25 History for nebulization (Yupelri) rosuvastatin 40 mg tablet 40 mg PO QPM 01/31/25 04/04/25 History nystatin 100,000 unit/gram topical 1 applic topical BID #60 grams 02/07/25 04/04/25 Rx powder ticagrelor 90 mg tablet (Brilinta) 90 mg PO BID 02/07/25 04/04/25 History cholecalciferol (vitamin D3) 125 50,000 unit PO WK 02/14/25 04/04/25 History mcg (5,000 unit) tablet (Vitamin D3) ensifentrine 3 mg/2.5 mL 2.5 ml inhalation AMPM 02/14/25 04/04/25 History suspension for nebulization (Ohtuvayre) tamsulosin 0.4 mg capsule 0.4 mg PO QAM 02/14/25 04/04/25 History Past Med/Surg History Problem List Encounter for pre-operative examination Carotid stenosis, bilateral Medical History Obesity CKD (chronic kidney disease) Noncompliance pt's significant other states pt. is noncompliant with medications, home oxygen and nebulizer treatments Aortic valve stenosis Moderate per 12/2023 ECHO Carotid artery disease s/p R TCAR 02/20/25; upcoming L TCAR scheduled Pulmonary HTN RVSP 49mmHg 12/2023 ECHO SSS (sick sinus syndrome) per chart review, SSS/2nd or 3rd degree heart block hx; s/p PPM ([employer]) PAD (peripheral artery disease) - s/p iliac artery stent 02/2023 (unsure what side); angioplasty to opposite iliac artery Peripheral angiogram LE- 11/10/24- showed severe PAD involving the left common femoral artery, bilateral SFA (recommended vascular surgery consult for possible OUTSIDE SALES MANAGER endarterectomy followed by PCI of the bilateral SFA) CAD (coronary artery disease) s/p PCI to RCA 2010 and PCI to LAD 2022 Hx of hypercapnia 2015, "spent 8 days intubated at [facility], CO2 levels were at 99%" per History of urinary retention History of hypertension Hx of hyperlipidemia Hx of gastroesophageal reflux (GERD) "doesn't take his medicine regularly" Diabetes mellitus, type 2 IDDM On home oxygen therapy supposed to be on 4L O2 continuously, not always compliant per significant other History of depression Hx of migraines History of atrial fibrillation permanent Afib Hx of congestive heart failure EF 50-55% per 12/2023 ECHO Pacemaker Due to SSS 02/2021, [employer] 06/28/2024, new generator placed, [facility], [employer] Hx of atrial flutter s/p ablation 2010 Hx of myocardial infarction (06/2009) 06/2009 History of COVID-19 (2023) 2023, no residual symptoms Hx of sleep apnea CPAP, non-compliant History of COPD Surgical History History of vascular surgery R TCAR 02/20/25: [place]: Glidescope#4, ETT#8.0 reinforced Hx of unilateral orchiectomy "no cancer, just kept swelling up" Hx of colonoscopy S/P epidural steroid injection "couple in the past for his neck" Hx of fusion of cervical spine late , [facility], weak muscle on one side-has some ROM limitations per S/P insertion of iliac artery stent 02/2023, [place], stent in one leg; couple weeks later, ballooning of a rtery opposite leg History of permanent cardiac pacemaker placement 02/2011, [place], [employer]; f/u dr. cantrell, [facility] 06/28/2024, new generator placed, [facility], [employer] > last in-person check 12/2024 History of cardiac radiofrequency ablation (RFA) (2011) 2009, Pravin Rigoberto @ [place]failed" ~2011, Marakana Rigoberto @ [place]failed" Hx of heart artery stent (02/2023) 06/2009, [place], x2 stents w/Dr. Hernandez 03/13/2023, routine cath, [facility], x1 stent; f/u Dr. Cantrell, [facility] Family History (Updated 03/31/25 @ 10:16 by Eileen Lua PA-C) Other No family history of adverse response to anesthesia Social History Smoking Status: Former smoker Tobacco Type: Smokeless Tobacco (Dip or Chew) Smoking End Date: 2015; Second Hand Exposure: No; Do You Dip or Chew Tobacco: Yes; Tobacco Cessation Education Requested by Patient: No Hx Alcohol Use: No Hx Substance Use: No Preferred Language: Malagasy Communication Ability: Effective Gas Technician Required: No Beliefs That Will Affect Care: None Current Living Situation: Spouse Other Information That Helps Us Care for You: No Feels Safe at Home: Yes Safety Concerns: Feels Safe At This Time Assistive Devices: Cane and Oxygen - Continuous Assistive Devices Comment: 4L O2 continuous (noncompliant) Results & Data Vital Signs (Past 12 Hours) Vital Signs Temp Pulse Resp BP BP Pulse Ox O2 Del Method 04/04/25 06:49 Room Air 04/04/25 06:47 37.0 C 95 H 20 139/99 141/91 H 96 Room Air Code Status & VTE Plan VTE Prophylaxis Plan VTE Prophylaxis will be ordered: Yes
[2025-04-04] MEDS ORDERED: NEOSTIGMINE METHYLSULFATE 1 MG/ML 10ML VIAL ONE (09:03)
[2025-04-04] MEDS ORDERED: PHENYLEPHRINE 100MCG/ML 5ML SYR ONE (09:04)
[2025-04-04] MEDS ORDERED: PROMETHAZINE HCL 6.25 MG in SODIUM CHLORIDE 0.9% 50 ML IV PRN (09:05)
[2025-04-04] MEDS ORDERED: ATROPINE SULFATE 0.1 MG/ML 10ML SYR IV PRN (09:05)
[2025-04-04] MEDS ORDERED: NALOXONE HCL 0.4 MG/1 ML VIAL/CARP IV PRN (09:05)
[2025-04-04] MEDS ORDERED: ONDANSETRON INJ 2 MG/ML 2 ML VIAL IV PRN (09:05)
[2025-04-04] MEDS: SURGICEL ABSORB HEMOSTAT 2IN X 14IN TOP ONE (09:42)
[2025-04-04] MEDS: GELATIN SPONGE SZ 100 ONE (09:42)
[2025-04-04] MEDS: ceFAZolin 330 MG/ML 1 GM VIAL ONE (09:42)
[2025-04-04] MEDS: THROMBIN FOR SOLN 20000 UNIT KIT ONE (09:42)
[2025-04-04] MEDS: VISIPAQUE IV ONE (09:56)
[2025-04-04] MEDS ORDERED: PROTAMINE SULFATE 10 MG/ML 5 ML VIAL IV ONE (09:57)
[2025-04-04] MEDS: BUPIVACAINE/EPINEPHRINE 0.5% MPF 1:200,000 30 ML VIAL ONE (10:01)
--- NOTE | 2025-04-04 10:08 | Post Operative Brief Note ---
Immediate Post Op Note Date of Surgery April 04, 2025 Pre & Post Diagnosis Operation Date: 04/04/25 08:00 Pre-Op Diagnosis: Left Internal Carotid Artery Stenosis Post-Op Diagnosis: Left Internal Carotid Artery Stenosis I identified the patient and participated in the time-out.: Yes Procedure Operation Date: 04/04/25 08:00 Actual Procedures p Left Transcarotid Artery Revascularization, Ultrasound Localization Left Common Femoral Vein(Left) - Humberto Martinez MD Surgeon Humberto Martinez MD Tax Commissioner MD Hubert SanchezMinarchneha,PAC Estimated Blood Loss 10 Findings Consistent with Post-Op Diagnosis Anesthesia Type General Complications none Disposition Accompanied Patient To Recovery: No Disposition: Recovery Room
--- NOTE | 2025-04-04 10:22 | Operative Report ---
Post Operative Report Pre & Post Diagnosis Operation Date: 04/04/25 08:00 Pre-Op Diagnosis: Left Internal Carotid Artery Stenosis Post-Op Diagnosis: Left Internal Carotid Artery Stenosis I identified the patient and participated in the time-out.: Yes Procedure Operation Date: 04/04/25 08:00 Actual Procedures p Left Transcarotid Artery Revascularization, Ultrasound Localization Left Common Femoral Vein(Left) - Humberto Martinez MD Surgeon Humberto Martinez MD Android Ui Developer MD Hubert SanchezMinarchneha,PAC Estimated Blood Loss 10 Findings Consistent with Post-Op Diagnosis Following stent deployment, no residual stenosis or obvious dissection flap. ECA patent, ICA patent, CCA patent. Fluids Per anesthesia report Specimens No specimen Drains No Drain Anesthesia Type General Complications None readily apparent. Indications Left asymptomatic carotid stenosis Description of Procedure The patient was brought to the operating room, where lines were placed and general anesthesia was accomplished by anesthesia team. A shoulder roll was placed and the neck was rotated towards the right side of the patient. The left neck and bilateral groins were prepped and patient was draped in the usual sterile fashion. A timeout was performed identifying the correct patient by name, procedure, and location of procedure and all were in agreement. A 4cm transverse incision was made between the sternal and clavicular heads of the sternocleidomastoid muscle. The muscle heads were retracted to each side and the carotid sheath was identified. Using blunt dissection, the carotid sheath was opened and 3cm of common carotid artery (CCA) were isolated. Umbilical tape was placed around the proximal CCA under direct visualization. A 5-0 prolene U- stitch was pre-placed in the anterior wall of the CCA to facilitate hemostasis after removal of the arterial sheath at completion of the procedure. The patient was given 8000 units of IV heparin. The left common femoral vein was accessed under ultrasound guidance, using a micropuncture needle and a wire and sheath were placed using modified Seldinger technique. The venous return sheath was advanced into the common femoral vein over the 0.035" wire. Blood was aspirated from the flow line and the sheath was flushed with heparinized saline.The sheath was secured to the patient's skin with a 2-0 silk stitch to maintain position in the vessel. ACT was confirmed to be above 250 seconds prior to arterial access. A 4-Tamazight non-stiffened micropuncture set was used, puncturing the artery with a 21G needle through the pre-placed U-stitch while holding gentle traction on the umbilical tape to stabilize the CCA within the incision. The micropuncture wire was advanced 3-4cm into the CCA and the 21G needle removed. The micropuncture sheath was advanced 3cm into the CCA and the wire and dilator were removed. A cerebral angiogram was obtained after ensuring there were no air bubbles in the system. After micropuncture sheath removal, the transcarotid arterial sheath was advanced to the 3rd marker and the 0.035" wire and dilator were removed. Arterial sheath position was assessed under fluoroscopy. The arterial sheath was sutured to the patient at two sites. The Flow Controller was connected to the transcarotid arterial sheath, prepared by passively allowing arterial blood to backfill the line and then it was connected to the venous return sheath. The CCA was clamped proximally to ensure active flow reversal. Heparinized saline was delivered into the venous flow line to confirm adequate flow reversal. A TCAR timeout was performed, heart rate was >70bpm and systolic BP was >140mmHg. Patient had been pretreated with glycopyrrolate and atropine was available. The lesion was crossed with an 0.014" guidewire and pre-dilation balloon angioplasty was performed with a 6x35mm [employer] rapid exchange balloon to 8 atmospheres for about 10 seconds. A 10/8x40mm ENROUTE transcarotid stent was placed, sized to the right CCA. A completion angiogram was performed showing appropriate stent position with good wall apposition. At TCAR case completion, antegrade flow was restored by releasing the tourniquet on the CCA and closing the stopcocks to the flow lines. The total clamp time was 10 minutes. The transcarotid arterial sheath was removed and the pre-placed suture was tied. 25 of protamine were given. A repeat ACT was obtained and was 124. The venous return sheath was removed and hemostasis achieved with manual compression. The neck incision was irrigated with antibiotic solution and was hemostatic before closure. 10cc of 0.25% marcaine with epinephrine were used for local anesthesia around skin edges. The platysma was approximated with 3-0 Vicryl running suture and the skin was closed with 4-0 running Vicryl suture and covered with Dermabond. The patient tolerated the procedure well and was extubated in the operating room. He was moving all four extremities to command prior to transfer to the recovery room. All counts were correct at the end of the procedure. Fluoroscopy time was 2.3minutes, radiation dose was 60mGy and 12cc of contrast were used. Dr. Martinez was present and participated in all critical parts of the procedure. I attest to the content of the Intraoperative Record and any orders documented therein. Any exceptions are noted below.
[2025-04-04] MEDS: ALBUTEROL 0.083% NEBU SOLN 3 ML VIAL NEB STA (11:10)
[2025-04-04] MEDS: ALBUTEROL 0.083% NEBU SOLN 3 ML VIAL ONE (11:27)
--- NOTE | 2025-04-04 12:25 | Critical Care Consultation ---
Date of Consultation April 04, 2025 Assessment & Plan (1) Carotid stenosis, bilateral: (2) CKD (chronic kidney disease): (3) Pulmonary HTN: (4) CAD (coronary artery disease): (5) PAD (peripheral artery disease): (6) Diabetes mellitus, type 2: (7) History of hypertension: (8) History of COPD: (9) Hx of sleep apnea: Plan Nito Donahue is a 69-year-old male with past medical history of COPD on home oxygen, CAD, HFrEF last EF 55-60%, CKD, PAD, SSS s/p PPM, pulmonary hype rtension, carotid stenosis s/p right TCAR in January 2025, KEITH noncompliant with CPAP, diabetes Mellitus Type II, and atrial fibrillation on Eliquis; who presented to [facility] on 04/04/2025 for a planned left carotid TCAR. Cartoid stenosis s/p left TCAR -Neurovascular checks per protocol -SBP > 100. Phenylephrine gtt ordered to maintain SBP goal. Not currently started. -Cont aspirin and tricagrelor COPD; chronic hypoxemia on oxygen at home -On oxygen at home though no always compliant -Maintain SpO2 > 90% -Currently on 4L nasal cannula (baseline) -Continue duonebs q6R -On Yuperli and Ohtuyavre at home ordered but non forumulary. CAD; PAD; atrial fibrillation; hyperlipidemia; pulmonary hypertension -Continue apixiban to start 04/05/2025 in am. -Continue digoxin and diltiazem. -Continue furosemide. -Cont fenofibrate and rosuvastatin Diabetes Mellitus Type II -Insulin glargine 48 units bid and SSI ordered. -Hgba1c in February 01.3 (220) Chronic kidney disease stage 3a -Avoid nephrotxic agents -Monitor renal function in am. Thank you for allowing us to participate in this patient's care. Please feel free to reach out with questions or concerns 58 minutes is the time spent reviewing the chart, obtaining history, performing the physical exam, and updating the patient, family, and bedside nurse. Supervising Physician Co-Signing Physician Notes Patient separately seen and examined. Agree with the note as above unless otherwise specified: Patient complaining of a mild headache. Tylenol will be given. Nonfocal on exam. Doing well status post TCAR. Patient with a host of chronic issues including hyperlipidemia, pulmonary pretension and atrial fibrillation. Restart home medications tomorrow. Patient also with uncontrolled diabetes with home insulin ordered by vascular surgeon. Exam is benign. Left TCAR site clean dry and intact. History of Present Illness Reason for Consultation: Post operative evaluation and management of Left TCAR Attending Physician: Humberto Martinez MD History of Present Illness Nito Donahue is a 69-year-old male with past medical history of COPD on home oxygen 4L, CAD, HFrEF last EF 55-60%, CKD, PAD, SSS s/p PPM, pulmonary hypertension, carotid stenosis s/p right TCAR on 02/20/25, KEITH noncompliant with CPAP, diabetes Mellitus Type II, and atrial fibrillation on Eliquis; who presented to [facility] on 04/04/2025 for a planned left carotid TCAR. Per report procedure went well and without complication. Patient brought to the ICU for continued evaluation and management of left TCAR. Allergies Allergy/AdvReac Type Severity Reaction Status Date / Time chlorhexidine Allergy Mild red, itchy Verified 04/04/25 06:47 skin doxycycline Allergy Mild red, itchy Verified 04/04/25 06:47 skin Penicillins Allergy Mild Hives Verified 04/04/25 06:47 Home Medications Medication Instructions Recorded Confirmed Type apixaban 5 mg tablet 5 mg PO BID 01/31/25 04/04/25 History aspirin 81 mg tablet 81 mg PO QAM 01/31/25 04/04/25 History digoxin 125 mcg (0.125 mg) tablet 125 mcg PO QAM 01/31/25 04/04/25 History diltiazem HCl 360 mg 360 mg PO QAM 01/31/25 04/04/25 History tablet,extended release 24 hr dulaglutide 3 mg/0.5 mL 3 mg subcut Q7D 01/31/25 04/04/25 History subcutaneous pen injector empagliflozin 10 mg tablet 10 mg PO QAM 01/31/25 04/04/25 History fenofibrate nanocrystallized 145 145 mg PO QAM 01/31/25 04/04/25 History mg tablet furosemide 80 mg tablet 80 mg PO BID 01/31/25 04/04/25 History insulin glargine 100 unit/mL (3 48 unit subcut BID 01/31/25 04/04/25 History mL) subcutaneous pen (Lantus Solostar U-100 Insulin) insulin lispro 100 unit/mL 25 unit subcut UD 01/31/25 04/04/25 History subcutaneous pen (Humalog KwikPen (U-100) Insulin) lisinopril 2.5 mg tablet 5 mg PO QAM 01/31/25 04/04/25 History metformin 1,000 mg tablet 500 mg PO BID 01/31/25 04/04/25 History metoprolol succinate 50 mg 75 mg PO BID 01/31/25 04/04/25 History tablet,extended release 24 hr potassium chloride 20 mEq 20 meq PO QAM 01/31/25 04/04/25 History tablet,extended release revefenacin 175 mcg/3 mL solution 175 mcg inhalation QPM 01/31/25 04/04/25 History for nebulization (Yupelri) rosuvastatin 40 mg tablet 40 mg PO QPM 01/31/25 04/04/25 History nystatin 100,000 unit/gram topical 1 applic topical BID #60 grams 02/07/25 04/04/25 Rx powder ticagrelor 90 mg tablet (Brilinta) 90 mg PO BID 02/07/25 04/04/25 History cholecalciferol (vitamin D3) 125 50,000 unit PO WK 02/14/25 04/04/25 History mcg (5,000 unit) tablet (Vitamin D3) ensifentrine 3 mg/2.5 mL 2.5 ml inhalation AMPM 02/14/25 04/04/25 History suspension for nebulization (Ohtuvayre) tamsulosin 0.4 mg capsule 0.4 mg PO QAM 02/14/25 04/04/25 History Patient History Medical History Obesity CKD (chronic kidney disease) Noncompliance pt's significant other states pt. is noncompliant with medications, home oxygen and nebulizer treatments Aortic valve stenosis Moderate per 12/2023 ECHO Carotid artery disease s/p R TCAR 02/20/25; upcoming L TCAR scheduled Pulmonary HTN RVSP 49mmHg 12/2023 ECHO SSS (sick sinus syndrome) per chart review, SSS/2nd or 3rd degree heart block hx; s/p PPM ([employer]tr[employer]) PAD (peripheral artery disease) - s/p iliac artery stent 02/2023 (unsure what side); angioplasty to opposite iliac artery Peripheral angiogram LE- 11/10/24- showed severe PAD involving the left common femoral artery, bilateral SFA (recommended vascular surgery consult for possible [employer]OR endarterectomy followed by PCI of the bilateral SFA) CAD (coronary artery disease) s/p PCI to RCA 2010 and PCI to LAD 2022 Hx of hypercapnia 2015, "spent 8 days intubated at [facility], CO2 levels were at 99%" per History of urinary retention History of hypertension Hx of hyperlipidemia Hx of gastroesophageal reflux (GERD) "doesn't take his medicine regularly" Diabetes mellitus, type 2 IDDM On home oxygen therapy supposed to be on 4L O2 continuously, not always compliant per significant other History of depression Hx of migraines History of atrial fibrillation permanent Afib Hx of congestive heart failure EF 50-55% per 12/2023 ECHO Pacemaker Due to SSS 02/2021, [employer] 06/28/2024, new generator [facility] Hx of atrial flutter s/p ablation 2010 Hx of myocardial infarction (06/2009) 06/2009 History of COVID-19 (2023) 2023, no residual symptoms Hx of sleep apnea CPAP, non-compliant History of COPD Surgical History History of vascular surgery R TCAR 02/20/25: [place]: Glidescope#4, ETT#8.0 reinforced Hx of unilateral orchiectomy "no cancer, just kept swelling up" Hx of colonoscopy S/P epidural steroid injection "couple in the past for his neck" Hx of [place] [facility] weak muscle on one side-has some ROM limitations per S/P insertion of iliac artery stent 02/2023, [facility] [place], stent in one leg; couple weeks later, ballooning of artery opposite leg History of permanent cardiac pacemaker placement 02/2011, [place], [facility]; f/u dr. cantrell, [facility] 06/28/2024, new generator placed, [facility], [employer] > last in-person check 12/2024 History of cardiac radiofrequency ablation (RFA) (2011) 2009, [facility] [place]-"failed" ~2011, [facility] @ [place]failed" Hx of heart artery stent (02/2023) 06/2009, [place], [place], x2 stents w/Dr. Hernandez 03/13/2023, routine cath, [facility], x1 stent; f/u Dr. Cantrell, [facility] Family History (Updated 03/31/25 @ 10:16 by Eileen Lua PA-C) Other No family history of adverse response to anesthesia Social History Smoking Status: Former smoker Tobacco Type: Smokeless Tobacco (Dip or Chew) Smoking End Date: 2015; Second Hand Exposure: No; Do You Dip or Chew Tobacco: Yes; Tobacco Cessation Education Requested by Patient: No Hx Alcohol Use: No Hx Substance Use: No Preferred Language: Croatian Communication Ability: Effective Snuff Grinder And Screener Required: No Beliefs That Will Affect Care: None Current Living Situation: Spouse Other Information That Helps Us Care for You: No Feels Safe at Home: Yes Safety Concerns: Feels Safe At This Time Assistive Devices: Cane and Oxygen - Continuous Assistive Devices Comment: 4L O2 continuous (noncompliant) Review of Systems Review of Systems: All systems reviewed & are unremarkable except as noted in HPI & below Physical Exam Physical Exam: VITALS: Reviewed. WEIGHT/BMI reviewed. GEN: stated age appearing, well-developed, NAD. PSYCH: Good Judgment. AOx3. Normal memory, mood, and affect. HEENT -Head: NC/AT; -Eyes: PERRL, EOMI. No discharge or redn ess; -Ears: External ears are normal. -Nose: Normal nares. NECK: Supple, with no masses. Left TCAR site with ecchymosis but no hematoma. CV: RRR, no m/r/g. LUNGS: CTAB, no w/r/c. ABD: Soft, NT/ND, NBS, no masses or organomegaly. : N/A SKIN: Warm, well perfused. No skin rashes or abnormal lesions. MSK: No deformities, Normal gait. EXT: No clubbing, cyanosis, or edema. dopplerable distal pulses bilateral lower exremities. Left groin access site without hematoma or bleeding. NEURO: Normal muscle strength and tone. No focal deficits. Results & Data Results & Data Vital Signs (Past 12 Hours) Vital Signs Temp Pulse Resp BP BP Pulse Ox O2 Del Method 04/04/25 11:40 36.4 C L 62 20 116/55 L 109/41 L 96 Nasal Cannula 04/04/25 11:30 64 20 96/52 L 102/50 L 96 Oxymask 04/04/25 11:20 66 20 106/52 L 95/32 L 97 Nebulizer 04/04/25 11:10 36.0 C L 80 16 123/64 128/53 L 99 Oxymask 04/04/25 11:00 81 22 124/74 126/60 98 Oxymask 04/04/25 10:50 36.0 C L 80 14 123/74 128/52 L 99 Oxymask 04/04/25 06:49 Room Air 04/04/25 06:47 37.0 C 95 H 20 139/99 141/91 H 96 Room Air O2 Flow Rate 04/04/25 11:40 4 04/04/25 11:30 10 04/04/25 11:20 15 04/04/25 11:10 15 04/04/25 11:00 15 04/04/25 10:50 10 04/04/25 06:49 04/04/25 06:47 Critical Care Results & Data Vital Signs (Past 12 Hours) Vital Signs Temp Pulse Resp BP BP Pulse Ox O2 Del Method 04/04/25 11:40 36.4 C L 62 20 116/55 L 109/41 L 96 Nasal Cannula 04/04/25 11:30 64 20 96/52 L 102/50 L 96 Oxymask 04/04/25 11:20 66 20 106/52 L 95/32 L 97 Nebulizer 04/04/25 11:10 36.0 C L 80 16 123/64 128/53 L 99 Oxymask 04/04/25 11:00 81 22 124/74 126/60 98 Oxymask 04/04/25 10:50 36.0 C L 80 14 123/74 128/52 L 99 Oxymask 04/04/25 06:49 Room Air 04/04/25 06:47 37.0 C 95 H 20 139/99 141/91 H 96 Room Air O2 Flow Rate 04/04/25 11:40 4 04/04/25 11:30 10 04/04/25 11:20 15 04/04/25 11:10 15 04/04/25 11:00 15 04/04/25 10:50 10 04/04/25 06:49 04/04/25 06:47 Lab & Micro Results (Past 24 Hours) No Data to Display Na 141 mmol/L (136-145) 04/04/25 K 4.3 mmol/L (3.5-5.1) 04/04/25 Cl 109 mmol/L (98-107) H 04/04/25 CO2 26 mmol/L (21-32) 04/04/25 Anion Gap 6 (3-11) 04/04/25 BUN 24 mg/dl (6-23) H 04/04/25 Creatinine 1.39 mg/dl (0.6-1.4) 04/04/25 BUN/Creatinine Ratio 17.3 (10-20) 04/04/25 Glu 62 mg/dl (70-99(Fasting)) L 04/04/25 Ca 9.4 mg/dl (8.6-10.3) 04/04/25 Calcium Level 9.4 mg/dl (8.6-10.3) 04/04/25 06:33 I & O Totals 24 Hours 04/03/25 04/04/25 04/05/25 06:59 06:59 06:59 Intake Total 900 / 900 Output Total Balance 890 / 890 Cumulative 03/14/25 15:47 thru 04/04/25 11:35 Intake Total 900 Output Total 10 Balance 890 RT Ventilator Mngmt (Last Documented) Ventilator Ordered Settings Respiratory Rate 20 04/04/25 11:40 Ventilator - PT Measurements Respiratory Rate 20 Coding Level of Care Code 17693 INT INP/OBS CARE 2/55MIN Diagnoses Carotid stenosis, bilateral I65.23 CKD (chronic kidney disease) N18.9 Pulmonary HTN I27.20 CAD (coronary artery disease) I25.10 PAD (peripheral artery disease) I73.9 Diabetes mellitus, type 2 E11.9 History of hypertension Z86.79 History of COPD Z87.09 Hx of sleep apnea Z86.69
[2025-04-04] MEDS ORDERED: PHENYLEPHRINE/NSS 25 MG/250 ML BAG IV PRN (12:26)
[2025-04-04] MEDS ORDERED: PHARMACY GLYCEMIC MGMT CONSULT PRN (12:26)
[2025-04-04] MEDS ORDERED: STAT IV Infusion **Titration per Protocol STA (12:26)
--- NOTE | 2025-04-04 12:32 | Anesthesiology Progress Note ---
Date of Service April 04, 2025 Anesthesia Post Procedure Vital Signs Vital Signs: Temp Pulse Resp BP BP Pulse Ox O2 Del Method 04/04/25 11:40 36.4 C L 62 20 116/55 L 109/41 L 96 Nasal Cannula 04/04/25 11:30 64 20 96/52 L 102/50 L 96 Oxymask 04/04/25 11:20 66 20 106/52 L 95/32 L 97 Nebulizer 04/04/25 11:10 36.0 C L 80 16 123/64 128/53 L 99 Oxymask 04/04/25 11:00 81 22 124/74 126/60 98 Oxymask 04/04/25 10:50 36.0 C L 80 14 123/74 128/52 L 99 Oxymask 04/04/25 06:49 Room Air 04/04/25 06:47 37.0 C 95 H 20 139/99 141/91 H 96 Room Air O2 Flow Rate 04/04/25 11:40 4 04/04/25 11:30 10 04/04/25 11:20 15 04/04/25 11:10 15 04/04/25 11:00 15 04/04/25 10:50 10 04/04/25 06:49 04/04/25 06:47 Transfer of Care Handoff Completed per policy Notes Mental Status: alert / awake / arousable Patient Amnestic to Procedure: Yes Nausea / Vomiting: adequately controlled Pain: adequately controlled Airway Patency, RR, SpO2: stable & adequate BP & HR: stable & adequate Hydration State: stable & adequate Anesthetic Complications: no major complications apparent
[2025-04-04] MEDS: CLINDAMYCIN/D5W 600 MG/50 ML BAG IV SCH (13:05)
[2025-04-04] MEDS: INSULIN ASPART PER UNIT CHARGE SC SCH (13:40)
[2025-04-04] MEDS ORDERED: GLUCOSE 10 TAB/TUBE PO PRN (13:45)
[2025-04-04] MEDS ORDERED: GLUCAGON FOR INJ 1 MG VIAL SQ PRN (13:45)
[2025-04-04] MEDS ORDERED: CARBOHYDRATES FOR HYPOGLYCEMIA PO PRN (13:45)
[2025-04-04] MEDS ORDERED: DEXTROSE 50% 50 ML SYRINGE IV PRN (13:45)
[2025-04-04] MEDS ORDERED: GLUCOSE 40% GEL 15 GM TUBE PO PRN (13:45)
--- NOTE | 2025-04-04 13:55 | Pharmacy Report ---
Pharmacy Glycemic Short Note 2 - Date of Service April 04, 2025 - Glycemic Short BSG Results (Last 24 hours): 04/04/25 04/04/25 04/04/25 06:33 06:48 07:35 Glucose 62 L POC Glucose 72 90 04/04/25 04/04/25 10:55 12:23 Glucose POC Glucose 193 H 257 H OUTPATIENT ANTIDIABETIC REGIMEN: * Lantus 48 units BID, Humalog 25 units with meals, empagliflozin 10 mg qAM, dulaglutide 3 mg q7D, metformin 500 mg BD * A1c 9.3% 02/21/25 ASSESSMENT: * Admitted to ICU following left TCAR. Patient has a history of type II diabetes. May have received preop dexamethasone * Per patient, last lantus dose was Thursday, however fasting BSG today was 72 mg/dL. Patient is ordered a diet and is eating post op. * Will utilize dosing strategy from previous admission one month ago for right TCAR. This used a basal/bolus insulin regimen similar to weight stress 2. and more balanced basal/bolus split as compared to outpatient dosing. PLAN FOR INPATIENT GLYCEMIC CONTROL: * Hold outpatient oral diabetes medications (Jardiance to start tomorrow morning given T2DM and HF) * Basal insulin * Lantus 35 units SQ x1, scale for PM 10-20 units (See MAR for details) * Bolus insulin * NovoLog per scale ACHS or Q6hrs while NPO * Goal Range: Low 110 mg/dL - High 160 mg/dL * Correction Factor: 20 mg/dL/unit * Nutritional / Prandial insulin per carb ratio of 1 unit per 7 grams CHO consumed
[2025-04-04] MEDS: LANTUS PER UNIT CHARGE SC STA (14:03)
[2025-04-04] MEDS: FUROSEMIDE 80 MG TAB PO SCH (20:33)
[2025-04-04] MEDS: TICAGRELOR 90 MG TAB PO SCH (20:33)
[2025-04-04] MEDS: METOPROLOL SUCC 25MG EXT REL TAB PO SCH (20:33)
[2025-04-04] MEDS: LANTUS PER UNIT CHARGE SC SCH (20:37)
[2025-04-04] MEDS ORDERED: NON-FORMULARY MEDICATION (Insulin Glargine [Lantus Solostar U-100 Insulin] 100 unit/mL (3 SQ SCH (21:00)
[2025-04-04] MEDS: NYSTATIN POWDER 15GM BTL EXT SCH (21:24)
[2025-04-04] MEDS: ROSUVASTATIN CALCIUM 20 MG TAB PO SCH (21:24)
[2025-04-04 23:56] VITALS: TEMP 98.6
[2025-04-05] MEDS: APIXABAN 5 MG TABLET PO SCH (08:36)
[2025-04-05] MEDS: DIGOXIN 0.125 MG TAB PO SCH (08:36)
[2025-04-05] MEDS: EMPAGLIFLOZIN 10 MG TAB PO SCH (08:37)
[2025-04-05] MEDS: TAMSULOSIN HCL 0.4 MG CAP PO SCH (08:37)
[2025-04-05] MEDS: FENOFIBRATE NANOCRYSTALLIZED 145 MG TABLET PO SCH (08:37)
[2025-04-05] MEDS: ASPIRIN 81 MG ECTAB PO SCH (08:37)
[2025-04-05] MEDS: LANTUS PER UNIT CHARGE SC SCH (08:38)
[2025-04-05] MEDS: POTASSIUM CHLORIDE CRTAB 20 MEQ TABCR PO SCH (08:40)
[2025-04-05 10:14] VITALS: RESP 14; O2SAT 99
--- NOTE | 2025-04-05 10:52 | Critical Care Progress Note ---
Date of Service April 05, 2025 Assessment & Plan (1) Carotid stenosis, bilateral: (2) CKD (chronic kidney disease): (3) Pulmonary HTN: (4) CAD (coronary artery disease): (5) PAD (peripheral artery disease): (6) Diabetes mellitus, type 2: (7) History of hypertension: (8) History of COPD: (9) Hx of sleep apnea: Plan Nito Donahue is a 69-year-old male with past medical history of COPD on home oxygen, CAD, HFrEF last EF 55-60%, CKD, PAD, SSS s/p PPM, pulmonary hyperten jeanette, carotid stenosis s/p right TCAR in January 2025, KEITH noncompliant with CPAP, diabetes Mellitus Type II, and atrial fibrillation on Eliquis; who presented to [facility] on 04/04/2025 for a planned left carotid TCAR. Cartoid stenosis s/p left TCAR -Neurovascular checks per protocol -SBP > 100. Phenylephrine gtt ordered to maintain SBP goal. Never started. -Cont aspirin and tricagrelor COPD; chronic hypoxemia on oxygen at home -On oxygen at home though no always compliant -Maintain SpO2 > 90% -Currently on 4L nasal cannula (baseline) -Continue duonebs q6R -On Yuperli and Ohtuyavre at home ordered but non formulary. CAD; PAD; atrial fibrillation; hyperlipidemia; pulmonary hypertension -Continue apixiban to start 04/05/2025 in am. -Continue digoxin and diltiazem. -Continue furosemide. -Cont fenofibrate and rosuvastatin Diabetes Mellitus Type II -Was on Insulin glargine 48 units bid and SSI ordered. Pharmacy to increase. -Hgba1c in February 01.3 (220) Chronic kidney disease stage 3a -Avoid nephrotxic agents -Monitor renal function in am. Thank you for allowing us to participate in this patient's care. Please feel free to reach out with questions or concerns 36 minutes is the time spent reviewing the chart, obtaining history, performing the physical exam, and updating the patient, family, and bedside nurse. Admission and Anticipated Discharge Date Admission Date: April 04, 2025 Subjective "I feel good this am." Patient had some bradycardia overnight with inconsistent capture with pacemaker. Pacemaker to be interrogated. Patient otherwise asymptomatic and hemodynamically stable. Review of Systems Review of Systems: All systems reviewed & are unremarkable except as noted in HPI & below Physical Exam Physical Exam: VITALS: Reviewed. WEIGHT/BMI reviewed. GEN: stated age appearing, well-developed, NAD. PSYCH: Good Judgment. AOx3. Normal memory, mood, and affect. HEENT -Head: NC/AT; -Eyes: PERRL, EOMI. No discharge or redn ess; -Ears: External ears are normal. -Nose: Normal nares. NECK: Supple, with no masses. Left TCAR site with ecchymosis but no hematoma. CV: RRR, no m/r/g. LUNGS: CTAB, no w/r/c. ABD: Soft, NT/ND, NBS, no masses or organomegaly. : N/A SKIN: Warm, well perfused. No skin rashes or abnormal lesions. MSK: No deformities, Normal gait. EXT: No clubbing, cyanosis, or edema. dopplerable distal pulses bilateral lower exremities. Left groin access site without hematoma or bleeding. NEURO: Normal muscle strength and tone. No focal deficits. Results & Data Results & Data Vital Signs (Past 12 Hours) Vital Signs Temp Pulse Resp BP Pulse Ox O2 Del Method O2 Flow Rate 04/05/25 10:09 68 14 99 04/05/25 09:06 73 15 96 04/05/25 08:36 68 04/05/25 08:30 121/68 04/05/25 08:21 66 18 94 04/05/25 08:03 70 18 93 04/05/25 08:00 123/69 04/05/25 08:00 68 04/05/25 07:48 90 16 91 04/05/25 07:32 129/66 04/05/25 07:18 61 14 97 04/05/25 07:00 139/77 04/05/25 07:00 59 L 17 96 04/05/25 05:42 68 17 96 04/05/25 05:33 67 15 94 04/05/25 05:30 130/65 04/05/25 05:30 130/65 04/05/25 05:30 130/65 04/05/25 05:15 64 18 97 04/05/25 05:12 67 15 98 Nasal Cannula 1 04/05/25 04:48 74 19 98 04/05/25 04:36 31 L 19 96 04/05/25 04:31 149/87 H 04/05/25 04:31 149/87 H 04/05/25 04:31 149/87 H 04/05/25 04:31 149/87 H 04/05/25 04:15 65 17 96 04/05/25 04:12 64 16 96 04/05/25 04:09 70 20 97 04/05/25 03:48 69 17 96 04/05/25 03:30 71 15 95 04/05/25 03:30 118/72 04/05/25 03:30 118/72 04/05/25 03:15 71 18 95 04/05/25 03:06 68 19 95 Nasal Cannula 1 04/05/25 02:39 80 21 94 04/05/25 02:30 145/95 H 04/05/25 02:27 63 18 97 04/05/25 02:24 78 17 97 04/05/25 02:03 64 17 96 04/05/25 02:00 149/84 H 04/05/25 02:00 149/84 H 04/05/25 02:00 149/84 H 04/05/25 02:00 149/84 H 04/05/25 01:54 77 16 97 04/05/25 01:33 80 17 96 04/05/25 01:30 144/89 H 04/05/25 01:30 144/89 H 04/05/25 01:30 144/89 H 04/05/25 01:30 144/89 H 04/05/25 01:15 79 16 96 04/05/25 01:12 69 16 96 04/05/25 01:03 81 17 97 04/05/25 01:00 145/80 H 04/05/25 01:00 145/80 H 04/05/25 00:30 160/85 H 04/05/25 00:15 85 17 99 04/05/25 00:12 0 L 18 97 04/05/25 00:06 78 15 98 04/05/25 00:00 152/88 H 04/05/25 00:00 152/88 H 04/05/25 00:00 152/88 H 04/05/25 00:00 76 04/04/25 23:57 95 H 40 H 98 04/04/25 23:55 37.0 C 04/04/25 23:51 81 18 99 04/04/25 23:42 100 H 16 97 04/04/25 23:33 82 19 97 04/04/25 23:30 154/87 H 04/04/25 23:21 65 17 98 Nasal Cannula 1 Critical Care Results & Data Vital Signs (Past 12 Hours) Vital Signs Temp Pulse Resp BP Pulse Ox O2 Del Method O2 Flow Rate 04/05/25 10:09 68 14 99 04/05/25 09:06 73 15 96 04/05/25 08:36 68 04/05/25 08:30 121/68 04/05/25 08:21 66 18 94 04/05/25 08:03 70 18 93 04/05/25 08:00 123/69 04/05/25 08:00 68 04/05/25 07:48 90 16 91 04/05/25 07:32 129/66 04/05/25 07:18 61 14 97 04/05/25 07:00 139/77 04/05/25 07:00 59 L 17 96 04/05/25 05:42 68 17 96 04/05/25 05:33 67 15 94 04/05/25 05:30 130/65 04/05/25 05:30 130/65 04/05/25 05:30 130/65 04/05/25 05:15 64 18 97 04/05/25 05:12 67 15 98 Nasal Cannula 1 04/05/25 04:48 74 19 98 04/05/25 04:36 31 L 19 96 04/05/25 04:31 149/87 H 04/05/25 04:31 149/87 H 04/05/25 04:31 149/87 H 04/05/25 04:31 149/87 H 04/05/25 04:15 65 17 96 04/05/25 04:12 64 16 96 04/05/25 04:09 70 20 97 04/05/25 03:48 69 17 96 04/05/25 03:30 71 15 95 04/05/25 03:30 118/72 04/05/25 03:30 118/72 04/05/25 03:15 71 18 95 04/05/25 03:06 68 19 95 Nasal Cannula 1 04/05/25 02:39 80 21 94 04/05/25 02:30 145/95 H 04/05/25 02:27 63 18 97 04/05/25 02:24 78 17 97 04/05/25 02:03 64 17 96 04/05/25 02:00 149/84 H 04/05/25 02:00 149/84 H 04/05/25 02:00 149/84 H 04/05/25 02:00 149/84 H 04/05/25 01:54 77 16 97 04/05/25 01:33 80 17 96 04/05/25 01:30 144/89 H 04/05/25 01:30 144/89 H 04/05/25 01:30 144/89 H 04/05/25 01:30 144/89 H 04/05/25 01:15 79 16 96 04/05/25 01:12 69 16 96 04/05/25 01:03 81 17 97 04/05/25 01:00 145/80 H 04/05/25 01:00 145/80 H 04/05/25 00:30 160/85 H 04/05/25 00:15 85 17 99 04/05/25 00:12 0 L 18 97 04/05/25 00:06 78 15 98 04/05/25 00:00 152/88 H 04/05/25 00:00 152/88 H 04/05/25 00:00 152/88 H 04/05/25 00:00 76 04/04/25 23:57 95 H 40 H 98 04/04/25 23:55 37.0 C 04/04/25 23:51 81 18 99 04/04/25 23:42 100 H 16 97 04/04/25 23:33 82 19 97 04/04/25 23:30 154/87 H 04/04/25 23:21 65 17 98 Nasal Cannula 1 Lab & Micro Results (Past 24 Hours) No Data to Display No Data to Display No Data to Display I & O Totals 24 Hours 04/04/25 04/05/25 04/06/25 06:59 06:59 06:59 Intake Total 2009 550 / 550 Output Total 3460 / 3460 650 / 650 Balance -1450 / -1450 -100 / -100 Cumulative 03/14/25 15:47 thru 04/05/25 10:00 Intake Total 2560 Output Total 4110 Balance -1550 RT Ventilator Mngmt (Last Documented) Ventilator Ordered Settings Respiratory Rate 14 04/05/25 10:09 Ventilator - PT Measurements Respiratory Rate 14 Coding Level of Care Code 29176 SUB INP/OBS CARE 2/35MIN Diagnoses Carotid stenosis, bilateral I65.23 CKD (chronic kidney disease) N18.9 Pulmonary HTN I27.20 CAD (coronary artery disease) I25.10 PAD (peripheral artery disease) I73.9 Diabetes mellitus, type 2 E11.9 History of hypertension Z86.79 History of COPD Z87.09 Hx of sleep apnea Z86.69
[2025-04-05] MEDS ORDERED: INSULIN HUMAN REGULAR PER UNIT 5 UNITS in SYRINGE 4.95 ML IV ONE (11:45)
--- NOTE | 2025-04-05 12:19 | Electrocardiogram Report ---
Test Reason : Blood Pressure : */* mmHG Vent. Rate : 74 BPM Atrial Rate : * BPM P-R Int : * ms QRS Dur : 104 ms QT Int : 402 ms P-R-T Axes : * 14 95 degrees QTcB Int : 446 ms Atrial fibrillation with occasional ventricular-paced complexes Incomplete right bundle branch block Nonspecific T wave abnormality Abnormal ECG When compared with ECG of 07-Feb-2025 06:54, Electronic ventricular pacemaker has replaced Atrial fibrillation Confirmed by Bryan Suarez ([id number]) on 04/05/2025 12:19:10 PM Referred By: Humberto Martinez Confirmed By: Bryan Suarez
--- NOTE | 2025-04-05 12:20 | Electrocardiogram Report ---
Test Reason : Blood Pressure : */* mmHG Vent. Rate : 65 BPM Atrial Rate : * BPM P-R Int : * ms QRS Dur : 104 ms QT Int : 500 ms P-R-T Axes : * 28 86 degrees QTcB Int : 520 ms Atrial fibrillation with frequent ventricular-paced complexes Incomplete right bundle branch block Prolonged QT Abnormal ECG When compared with ECG of 05-Apr-2025 04:38, (unconfirmed) Vent. rate has decreased by 9 bpm Confirmed by Bryan Suarez ([id number]) on 04/05/2025 12:19:57 PM Referred By: Humberto Martinez Confirmed By: Bryan Suarez
--- NOTE | 2025-04-05 13:02 | Pharmacy Report ---
Pharmacy Glycemic Short Note 2 - Date of Service April 05, 2025 - Glycemic Short BSG Results (Last 24 hours): 04/04/25 04/04/25 04/04/25 16:16 16:18 19:45 POC Glucose 318 H* 297 H 262 H 04/05/25 04/05/25 04/05/25 07:19 10:41 12:02 POC Glucose 347 H* 365 H* 456 H* 04/05/25 12:03 POC Glucose 300 H OUTPATIENT ANTIDIABETIC REGIMEN: * Lantus 48 units BID, Humalog 25 units with meals, empagliflozin 10 mg qAM, dulaglutide 3 mg q7D, metformin 500 mg BD * A1c 9.3% 02/21/25 ASSESSMENT: 04/05 * Blood sugar significantly elevated this morning, significantly different from previous admission. Will increase lantus back to home dose. * Discussed on rounds, will attempt to use subq insulin as patient was likely to be discharged * BSG 365 mg/dL was taken ~2 hours after previous novolog a dministration/breakfast, likely peak and with trend down. * Plan was to recheck BSG and if >325 mg/dL give 5 unit IV bolus with novolog coverage. BSGs were 456 and then 300 mg/dL. Preference would be to have gotten a third BSG to confirm one way or the other. Novolog was given without IV bolus and patient was eating. Therefore will not get a recheck at this point as it will likely go up with food again and would like to avoid stacking insulin for now. * If patient to remain inpatient consider starting insulin infusion if BSGs remain elevated. * Tighten carb ratio with dinner and monitor 04/04 * Admitted to ICU following left TCAR. Patient has a history of type II diabetes. May have received preop dexamethasone * Per patient, last lantus dose was Thursday, however fasting BSG today was 72 mg/dL. Patient is ordered a diet and is eating post op. * Will utilize dosing strategy from previous admission one month ago for right TCAR. This used a basal/bolus insulin regimen similar to weight stress 2. and more balanced basal/bolus split as compared to outpatient dosing. PLAN FOR INPATIENT GLYCEMIC CONTROL: * Hold outpatient oral diabetes medications (Jardiance to start tomorrow morning given T2DM and HF) * Basal insulin * Lantus 45 units BID * Bolus insulin * NovoLog per scale ACHS or Q6hrs while NPO * Goal Range: Low 110 mg/dL - High 160 mg/dL * Correction Factor: 15 mg/dL/unit * Nutritional / Prandial insulin per carb ratio of 1 unit per 4 grams CHO consumed
--- NOTE | 2025-04-05 14:49 | Surgery Progress Note ---
Date of Service April 05, 2025 Assessment & Plan (1) Carotid stenosis, bilateral: Plan: Pt doing well POD #1 after L TCAR. Discussed wtih Dr Martinez. Pt ok for d/c home today. Admission and Anticipated Discharge Date Admission Date: April 04, 2025 Subjective 69 yo m POD #1 after uncomplicated L TCAR, seen in f/u today. Pt states feeling generally well, no complaints. Review of Systems Review of Systems: All systems reviewed & are unremarkable except as noted in HPI & below Physical Exam Constitutional: WD/WN, vitals as above cooperative and comfortable; not in distress Neck: trachea midline L supraclavicular incision C/D/I, mild ecchymosis, edema Respiratory: normal respiratory effort, lungs clear to auscultation Auscultation: + diminished lung sounds Cardiovascular: Rate/Rhythm: + irregularly irregular Vessels: dorsalis pedis pulses present and radial pulses present; + abnormal peripheral pulses Extremities: normal capillary refill Gastrointestinal (Abdomen): Inspection/Auscultation: abdomen normal to inspection and normal bowel sounds Percussion/Palpation: abdomen soft; abdomen nontender Musculoskeletal: no cyanosis or clubbing, extremities motor strength 5/5 Skin: no rashes, warm and dry Neurologic: moves all extremities and awake; no focal motor deficits and not confused Psychiatric: A+Ox3, euthymic affect Results & Data Vital Signs (Past 12 Hours) Vital Signs Pulse Resp BP Pulse Ox O2 Del Method O2 Flow Rate 04/05/25 10:09 68 14 99 04/05/25 09:06 73 15 96 04/05/25 08:36 68 04/05/25 08:30 121/68 04/05/25 08:21 66 18 94 04/05/25 08:03 70 18 93 04/05/25 08:00 123/69 04/05/25 08:00 68 04/05/25 07:48 90 16 91 04/05/25 07:32 129/66 04/05/25 07:18 61 14 97 04/05/25 07:00 139/77 04/05/25 07:00 59 L 17 96 04/05/25 05:42 68 17 96 04/05/25 05:33 67 15 94 04/05/25 05:30 130/65 04/05/25 05:30 130/65 04/05/25 05:30 130/65 09/10/25 05:15 64 18 97 04/05/25 05:12 67 15 98 Nasal Cannula 1 04/05/25 04:48 74 19 98 04/05/25 04:36 31 L 19 96 04/05/25 04:31 149/87 H 04/05/25 04:31 149/87 H 04/05/25 04:31 149/87 H 04/05/25 04:31 149/87 H 04/05/25 04:15 65 17 96 04/05/25 04:12 64 16 96 04/05/25 04:09 70 20 97 04/05/25 03:48 69 17 96 04/05/25 03:30 71 15 95 04/05/25 03:30 118/72 04/05/25 03:30 118/72 04/05/25 03:15 71 18 95 04/05/25 03:06 68 19 95 Nasal Cannula 1
[2025-04-05 14:50] VITALS: BP 116/55; PULSE 76
--- NOTE | 2025-04-05 14:51 | Discharge Summary ---
Date of Service April 05, 2025 Admission HPI Per Admitting Provider _Mr. Donahue is an elderly male who presents to Dr. Szymanski's vascular surgery clinic today for a follow-up appointment after undergoing an uncomplicated right TCAR procedure at [facility] about 2 weeks ago. Patient overall states he is doing well. He states that the yolie in the right side of his neck have been pulling and causing some discomfort. He denies any new complaints of cerebrovascular insufficiency including amaurosis, new extremity weakness numbness or tingling, difficulty speaking or swallowing, facial droop, other complaints. He stated to having some chronic left arm and hand numbness. Patient denies any problems related to his groin puncture as well. Admission Exam Per Admitting Provider Constitutional: In general patient is a mildly chronically ill-appearing middle- age male in no distress. He is alert and oriented with no focal deficits. His right supraclavicular incision is clean dry and intact with yolie. These were removed without difficulty or wound dehiscence. There is no erythema ecchymosis or discharge. There is minimal tenderness. Patient does use a cane for ambulation, and does sit in a resting position with his head tilted forward and to the right. This is chronic. His lungs are clear. His heart has a RRR. His abdominal exam is benign. His neuro is grossly intact. Principal Diagnosis 1. s/p L TCAR 2. L ICA stenosis Discharge Exam Constitutional WD/WN, vitals as above cooperative and comfortable; not in distress Neck trachea midline Respiratory normal respiratory effort, lungs clear to auscultation Auscultation: + diminished lung sounds Cardiovascular Rate/Rhythm: + irregularly irregular Vessels: dorsalis pedis pulses present and radial pulses present; + abnormal peripheral pulses Extremities: normal capillary refill Gastrointestinal (Abdomen) Inspection/Auscultation: abdomen normal to inspection and normal bowel sounds Percussion/Palpation: abdomen soft; abdomen nontender Musculoskeletal no cyanosis or clubbing, extremities motor strength 5/5 Skin no rashes, warm and dry Neurologic moves all extremities and awake; no focal motor deficits and not confused Psychiatric A+Ox3, euthymic affect Discharge Data Allergies Allergy/AdvReac Type Severity Reaction Status Date / Time chlorhexidine Allergy Mild red, itchy Verified 04/04/25 06:47 skin doxycycline Allergy Mild red, itchy Verified 04/04/25 06:47 skin Penicillins Allergy Mild Hives Verified 04/04/25 06:47 Consultations 04/04/25 12:26 Consult Sports Lawyer Routine Procedures Performed Operation Date: 04/04/25 08:00 Actual Procedures p Left Transcarotid Artery Revascularization, Ultrasound Localization Left Common Femoral Vein(Left) - Humberto Szymanski MD Ordered Studies 04/04/25 07:06 EV angio carotid cerv LT Routine US EV guide vascular access Routine Hospital Course (1) Carotid stenosis, bilateral: Pt doing well POD #1 after L TCAR. Discussed wtih Dr Szymanski. Pt ok for d/c home today. Total Time Total Time Spent Total Time Spent (In Minutes): 0 Discharge Plan Discharge Items Patient Disposition: Home - Self-Care Reason For Visit: Left Internal Carotid Artery Stenosis Discharge Diagnosis: 1. s/p L TCAR 2. L ICAS Activity: Per Instructions section Lifting: Gradually increase as tolerated Non-emergency contact: Primary Care Provider and Surgeon Call non-emergency contact if: you have any medication questions, your symptoms worsen, your pain is not controlled, your pain is concerning for you, you have a fever, your wound has increased redness and your wound has increased drainage Follow-up/Referrals: Humberto Szymanski MD [Physician] - (Follow up with Dr Szymanski or Isabelle Henderson PA-C, in 2 weeks) Tracy Estrada CRNP [Primary Care Provider] - (Follow up with your PCP within 2 weeks) Diet: Regular and Heart Healthy Addtl Attending Provider Instructions: SPECIAL CARE INSTRUCTIONS: Diet: * You may return to previous diet. Medications: * Continue to take Aspirin, brilinta, and statin medications as directed. DO NOT STOP THESE MEDICATIONS WITHOUT SPEAKING TO DR SZYMANSKI'S OFFICE. Incision Care: * You may shower, but do not rub incision. You may let the warm soapy water run over it. Be sure to dry the incision well after bathing. * Do not shave directly over the incision until it is healed. * DO NOT IMMERSE THE INCISION IN A TUB/POOL/etc. UNTIL HEALED. Restrictions: * Do not drive for at least one week or if you are still taking any narcotic pain medication. * Do not lift anything heavier than a gallon of milk for one week after going home. Possible Complications: * Numbness - It is normal to have some numbness around the incision. Numbness can extend beyond the incision to areas of the neck, ear and face. The numbness is due to bruising of nerves during the surgery and will gradually improve over a period of months. * Hoarseness/Difficulty Speaking and Swallowing - The bruising of nerves in the neck can also cause a hoarse voice, difficulty speaking or swallowing. This may improve over time, HOWEVER, if it continues for more than a few days please contact our office ([phone]). * Excessive Swelling - There will be some swelling immediately after surgery which usually resolves within one week. If you notice that the swelling is getting worse, notify your surgeon ([phone]). * Drainage/Bleeding - If there is any drainage or bleeding, it should be a very small amount (less than a teaspoon per day). If you have excessive bleeding or drainage from the incision, call your surgeon ([phone]) right away. ACTIVATION OF EMERGENCY MEDICAL SYSTEM: Call 911, immediately, if you experience any of the following: Warning Signs and Symptoms of Stroke: * Sudden numbness or weakness of the face, arm or leg, especially on one side of the body * Sudden confusion, trouble speaking or understanding * Sudden trouble seeing in one or both eyes * Sudden trouble walking, dizziness, loss of balance or coordination * Sudden severe headache with no cause Do not delay calling 911 if you experience any warning signs or symptoms of a stroke. Delay in seeking medical attention may affect what treatments can be given to you. Risk Factors for Stroke: You can reduce your chances of stroke by working with your medical provider to adopt a healthy lifestyle. Some specific ways to lower your chance of stroke are: * If you are a smoker, now is the time to stop smoking cigarettes * If you are diabetic, improve the control of your blood sugars * Avoid excessive amounts of alcohol * Control high blood pressure * Lose weight if you are overweight * Be sure to lead an active lifestyle * Eat a healthy diet low in salt, cholesterol and fat You should know about other risk factors for stroke that you are unable to control. These include: * Age 55 years or older * Male gender * Certain racial groups: , or / * Family History of Stroke, Mini stroke or Heart Attack * Sickle Cell Disease You will be receiving a call from the Vascular Surgery Nurse after you are discharged. FOLLOW UP VISIT: It is important for you to keep your follow up appointments with your medical provider. Keep any scheduled doctor appointments. Pending Studies at Discharge: No Stand-Alone Forms: My [facility], Smoking Cessation Medications and DC Order Prescriptions: Continued furosemide 80 mg Tablet 80 mg PO BID metformin 1,000 mg Tablet 500 mg PO BID aspirin 81 mg Tablet 81 mg PO QAM digoxin 125 mcg (0.125 mg) Tablet 125 mcg PO QAM lisinopril 2.5 mg Tablet 5 mg PO QAM diltiazem HCl 360 mg Tablet Extended Release 24 Hr 360 mg PO QAM fenofibrate nanocrystallized 145 mg Tablet 145 mg PO QAM metoprolol succinate 50 mg Tablet Extended Release 24 Hr 75 mg PO BID insulin lispro [Humalog KwikPen Insulin] 100 unit/mL Insulin Pen 25 unit SUBCUT UD Rx Instructions: before meals insulin glargine [Lantus Solostar U-100 Insulin] 100 unit/mL (3 mL) Insulin Pen 48 unit SUBCUT BID apixaban 5 mg Tablet 5 mg PO BID Patient Comments: currently on hold by surgeon per pt potassium chloride 20 mEq Tablet Extended Release 20 meq PO QAM empagliflozin 10 mg Tablet 10 mg PO QAM dulaglutide 3 mg/0.5 mL Pen Injector 3 mg SUBCUT Q7D Patient Comments: sundays rosuvastatin 40 mg Tablet 40 mg PO QPM Yupelri 175 mcg/3 mL Solution For Nebulization 175 mcg INHALATION QPM nystatin 100,000 unit/gram powder 1 applic topical BID Qty: 60 0RF ticagrelor [Brilinta] 90 mg Tablet 90 mg PO BID tamsulosin 0.4 mg Capsule 0.4 mg PO QAM [place] 3 mg/2.5 mL Suspension For Nebulization 2.5 ml INHALATION AMPM cholecalciferol (vitamin D3) [Vitamin D3] 125 mcg (5,000 unit) Tablet 50,000 unit PO WK Discharge Orders: Discharge Order (Routine); Ordered 04/05/25 Ordered By: Isabelle Rey/Other Patient Handouts: TCAR, Carotid Artery Disease Admission Data Admit Date/Time: 04/04/25 07:31 Attending Provider: Humberto Szymanski Admit Provider: Humberto Szymanski Primary Care Provider: Tracy Estrada Other Providers: Tez Escoto; Luis Eduardo Baig; Virgil Hale; Edie Grande; Louis Wood; Abi Lake; Romeo Parson; Janelle Barreto Other Interventions: Discharge Summary Assessment (RN) Last Done: 04/05/25 14:48
[2025-04-05] MEDS ORDERED: LANTUS PER UNIT CHARGE SC SCH (21:00)
[2025-04-08] MEDS ORDERED: CHOLECALCIFEROL 125 MCG (5,000 UNITS) TAB PO SCH (09:00)
== END 2025-04-05 16:42 | disposition home or self-care (01) | DRG 35 ==
LOC: ASU 06:32 → 1E 07:31
PROC: EV.TCAR (2025-04-04 08:00)